=== PATIENT | male | born 1960 | race Two or more races ===

== ENCOUNTER 2020-03-22 17:38 | Inpatient (IN) | payer OTHER, SELFPAY ==
[2020-03-22 18:03] VITALS: BP 198/94; PULSE 96; RESP 24; O2SAT 94
[2020-03-22 18:53] VITALS: BP 204/114; PULSE 99; RESP 24; TEMP 36.8; O2SAT 97; BMI 32.8
--- NOTE | 2020-03-22 19:19 | ED_ITS ---
HPI - Abdominal Pain General Chief Complaint: Abdominal Pain Stated Complaint: ABDOMINAL PAIN Time Seen by Provider: 03/22/20 20:24 Source: patient Mode of arrival: ambulatory Limitations: no limitations History of Present Illness HPI narrative: 59-year-old male with past medical history of hypertension presents with positive COVID-19 contacts, 2 days of abdominal pain, and several hours of nausea and vomiting. He does not report any chest pain or pressure, palpitations, shortness of breath, abdominal distention, dysuria, hematuria fevers, chills, or edema. MD elicited complaint: abdominal pain and flank pain Onset (ago): day(s) (2) Pain Consistency: constant Location: diffuse Severity: severe Pain scale (0-10): 9 Quality: stabbing and aching Radiation: none Migration to: no migration Exacerbating factors: vomiting Relieving factors: nothing Associated symptoms: nausea, vomiting and diarrhea Related Data Home Medications Medication Instructions Recorded Confirmed No Known Home Meds 03/22/20 03/22/20 Allergies Allergy/AdvReac Type Severity Reaction Status Date / Time No Known Allergies Allergy Unverified 11/14/19 18:52 [No Known Allergies*] Review of Systems Review of Systems Constitutional: No Fever, no Chills, no fatigue, no Malaise ENT/Mouth: No sore throat, no runny nose Eyes: No Discharge Cardiovascular: No Chest Pain, No SOB Respiratory: Positive Cough, No Sputum, positive Wheezing, No Smoke Exposure, No Dyspnea Gastrointestinal: Positive Nausea, positive Vomiting, positive Diarrhea, positive abdominal pain Genitourinary: no irregular bleeding, No Dysuria, No Urinary Frequency, No Hematuria, No Urinary Incontinence, No Urgency, positive Flank Pain, Musculoskeletal: positive Myalgia Skin: No rash Neuro: No Headache Yes all other systems are reviewed and are negative Physical Exam Vital Signs: Vital Signs: Last Vital Signs Temp 98.7 F 03/22/20 22:04 Pulse 98 03/23/20 00:37 Resp 20 03/23/20 00:37 BP 156/94 H 03/23/20 00:37 Pulse Ox 95 03/23/20 00:37 Body Mass Index 32.8 Appearance: Alert. Oriented X3. Moderate distress. Afebrile, appears nontoxic Eyes: Pupils equal, round and reactive to light. ENT: Pharynx normal. Neck: Normal inspection. Neck supple. CVS: Tachycardic heart rate and rhythm. Pulses normal. Respiratory: Tachypneic on initial presentation at 24, lung sounds expiratory wheezing noted throughout all lobes diminished at the bases Abdomen: Soft and tender to palpation to the left lower quadrant, positive CVA tenderness bilaterally Skin: Skin warm and dry. Normal skin color. Normal skin turgor. Extremities: No lower extremity edema. Neuro: No motor deficit. No sensory deficit. Course Course Course Narrative: 59-year-old male with past medical history of hypertension presents with positive COVID-19 contact, abdominal pain, and nausea, vomiting an d diarrhea. Test for COVID-19, given patient's positive abdominal exam will order CT scan of abdomen and pelvis, gentle fluid resuscitation, CBC and Chem 7. Patient is COVID positive, will give Bentyl for abdominal pain. CT scan is positive for 8 mm obstructing stone and pyelonephritis. Will order morphine, Flomax, dexamethasone and oxycodone. Urology updated. Discussion with hospitalist regarding admission. Plan is to admit for pain management, obstructing renal stone, pyelonephritis and positive COVID-19. Consultations Consultation #1: [place] Consultation #2: [facility] - Abdominal Pain Differential Diagnosis Differential diagnosis: Likely abdominal pain, aortic dissection, acute appendicitis, calculus of kidney, constipation, diverticulitis, gastritis, pancreatitis and renal colic Differential diagnosis narrative:: Pneumonia, COVID-19 Medical Records Attestation: I reviewed the patient's medical records. Lab Data Attestation: I reviewed the patient's lab results. Result diagrams: 03/22/20 20:21 03/22/20 20:21 Labs: Lab Results 03/22/20 03/22/20 03/22/20 Range/Units 20:21 20:21 20:21 WBC 7.2 (4.8-10.8) X10*3/uL RBC 4.80 (4.60-5.80) X10*6/uL Hgb 17.5 (14.0-18.0) g/dl Hct 50.6 (42-52) % MCV 105.4 H (80-98) fL MCH 36.5 H (27.0-33.0) pg MCHC 34.6 (31.0-36.0) g/dl RDW 12.5 (11.0-16.0) % Plt Count 194 (160-400) X10*3/uL MPV 10.4 (9.4-12.4) fL Immature Gran % (Auto) 0.3 (0.0-0.4) % Neut % (Auto) 77.2 H (45-73) % Lymph % (Auto) 8.6 L (20-40) % [place] % (Auto) 13.1 H (2-11) % Eos % (Auto) 0.4 (0-4) % Baso % (Auto) 0.4 (0-2) % Lymph # (Auto) 0.6 L (1.2-4.9) X10*3/uL [place] # (Auto) 1.0 (0.1-1.2) X10*3/uL Eos # (Auto) 0.0 (0.0-0.4) X10*3/uL Baso # (Auto) 0.0 (0.0-0.2) X10*3/uL Abs Immat Gran (auto) 0.02 (0.00-0.03) X10*3/uL Absolute Neuts (auto) 5.6 (2.0-8.3) X10*3/uL Absolute Nucleated RBC 0.000 (0.0-0.012) X10*3/uL Nucleated RBC % (auto) 0.0 (0.0-0.2) /100WBC Smear Tech's Comments VERIFIED PT 13.0 (10.8-13.0) SEC INR 1.1 (0.9-1.1) APTT 36.5 (24.1-38.0) SEC Sodium (135-145) mmol/L Potassium (3.3-5.1) mmol/l Chloride (96-108) mmol/L Carbon Dioxide (22-29) mmol/L Anion Gap (12-20) BUN (9-16) mg/dL Creatinine (0.5-1.4) mg/dL Estim Creat Clear Calc Estimated GFR Random Glucose (60-115) mg/dL Calcium (8.4-10.2) mg/dL Total Bilirubin (0.0-1.0) mg/dL Direct Bilirubin (0.0-0.5) mg/dL AST (5-37) U/L ALT (0-40) U/L Alkaline Phosphatase (39-117) U/L Troponin I High Sens (<3.5-35.0) ng/L Total Protein (6.5-8.0) g/dL Albumin (3.5-5.0) g/dL Lipase (8-78) U/L Urine Color Urine Appearance Urine pH (5.0-8.0) Ur Specific [place] (1.005-1.025) Urine Protein (NEG-TRACE) MG/DL Urine Glucose (UA) (NEG) MG/DL Urine Ketones (NEG) MG/DL Urine Blood (NEG) Urine Nitrite (NEG) Ur Leukocyte Esterase (NEG) Urine RBC (0) /HPF Urine WBC (0-4) /HPF Ur Squamous Epith Cells /LPF Urine Bacteria /LPF Urine Mucus /LPF Coronavirus (PCR) POSITIVE A (Negative) Influenza Type A (PCR) NEGATIVE (Negative) Influenza Type B (PCR) NEGATIVE (Negative) RSV RNA Qual (PCR) NEGATIVE (Negative) 03/22/20 03/22/20 03/22/20 Range/Units 20:21 20:21 22:16 WBC (4.8-10.8) X10*3/uL RBC (4.60-5.80) X10*6/uL Hgb (14.0-18.0) g/dl Hct (42-52) % MCV (80-98) fL MCH (27.0-33.0) pg MCHC (31.0-36.0) g/dl RDW (11.0-16.0) % Plt Count (160-400) X10*3/uL MPV (9.4-12.4) fL Immature Gran % (Auto) (0.0-0.4) % Neut % (Auto) (45-73) % Lymph % (Auto) (20-40) % [place] % (Auto) (2-11) % Eos % (Auto) (0-4) % Baso % (Auto) (0-2) % Lymph # (Auto) (1.2-4.9) X10*3/uL [place] # (Auto) (0.1-1.2) X10*3/uL Eos # (Auto) (0.0-0.4) X10*3/uL Baso # (Auto) (0.0-0.2) X10*3/uL Abs Immat Gran (auto) (0.00-0.03) X10*3/uL Absolute Neuts (auto) (2.0-8.3) X10*3/uL Absolute Nucleated RBC (0.0-0.012) X10*3/uL Nucleated RBC % (auto) (0.0-0.2) /100WBC Smear Tech's Comments PT (10.8-13.0) SEC INR (0.9-1.1) APTT (24.1-38.0) SEC Sodium 138 (135-145) mmol/L Potassium 3.9 (3.3-5.1) mmol/l Chloride 101 (96-108) mmol/L Carbon Dioxide 25 (22-29) mmol/L Anion Gap 16 (12-20) BUN 6 L (9-16) mg/dL Creatinine 0.93 (0.5-1.4) mg/dL Estim Creat Clear Calc 91.7 Estimated GFR > 60 Random Glucose 191 H (60-115) mg/dL Calcium 8.7 (8.4-10.2) mg/dL Total Bilirubin 1.1 H (0.0-1.0) mg/dL Direct Bilirubin 0.4 (0.0-0.5) mg/dL AST 377 H (5-37) U/L ALT 256 H (0-40) U/L Alkaline Phosphatase 181 H (39-117) U/L Troponin I High Sens 8.2 (<3.5-35.0) ng/L Total Protein 8.9 H (6.5-8.0) g/dL Albumin 3.9 (3.5-5.0) g/dL Lipase 34 (8-78) U/L Urine Color YELLOW Urine Appearance CLEAR Urine pH 7.0 (5.0-8.0) Ur Specific [place] 1.025 (1.005-1.025) Urine Protein NEG (NEG-TRACE) MG/DL Urine Glucose (UA) 100 H (NEG) MG/DL Urine Ketones NEG (NEG) MG/DL Urine Blood 1+ H (NEG) Urine Nitrite NEG (NEG) Ur Leukocyte Esterase NEG (NEG) Urine RBC 5-9 H (0) /HPF Urine WBC 1-4 (0-4) /HPF Ur Squamous Epith Cells 1+ /LPF Urine Bacteria 1+ /LPF Urine Mucus 1+ /LPF Coronavirus (PCR) (Negative) Influenza Type A (PCR) (Negative) Influenza Type B (PCR) (Negative) RSV RNA Qual (PCR) (Negative) Imaging Data CT scan - abdomen: Attestation: I personally reviewed and interpreted this imaging study as follows: Radiologist's impression: EXAMINATION: CT ABDOMEN AND PELVIS WITHOUT CONTRAST CLINICAL INFORMATION: Abdominal pain. COMPARISON: None TECHNIQUE: Multidetector volumetric imaging was performed from the superior aspect of the liver through the pubic symphysis. Sagittal and coronal reformatted images were obtained on the technologist's workstation. This CT examination was performed using dose optimization techniques as appropriate, variously including the following: *Automated exposure control *Adjustment of mA and/or kV according to patient size (this includes techniques or standardized protocols for targeted exams where dose is matched to indication/reason for exam; i.e. extremities or head) *Use of iterative reconstruction technique DLP: 649 mGy-cm FINDINGS: LUNG BASES: There is 6 mm calcified granuloma left lower lobe. The lung bases are clear The heart size is normal.. LIVER, GALLBLADDER, AND BILIARY TREE: The liver is normal in size, shape, and attenuation. No focal hepatic lesion or biliary ductal dilatation is present. The gallbladder is unremarkable with no evidence of radiopaque gallstones, gallbladder wall thickening, or obvious pericholecystic inflammatory changes. PANCREAS: Unremarkable. SPLEEN: Unremarkable. ADRENAL GLANDS: There is a 1.3 cm left adrenal lesion. There are degenerative gland appears unremarkable. KIDNEYS AND URETERS: The left kidneys enlarged in size with diffuse perinephric stranding. There is mild hydroureteronephrosis on an obstructive 8 mm left distal ureteral calculi. The right kidney is normal size. No radiopaque calculi or hydronephrosis seen. BLADDER: The bladder is significantly distended extending almost of umbilicus. No bladder wall thickening seen. GASTROINTESTINAL TRACT: There is scattered stool and gas seen throughout the colon without distention. The small bowel loops are normal caliber. The appendix is normal. ABDOMINAL WALL: No significant hernia is appreciated. LYMPH NODES: Normal. VASCULAR: There is mild ectasia of mid abdominal aorta measuring 2.6 x 2.5 cm and axial image 41/3. In addition there is mild calcification of mid and distal abdominal aorta and common iliac arteries. PELVIC VISCERA: The prostate gland is mildly enlarged with central gland calcifications. OSSEOUS STRUCTURES: There are degenerative disc changes L1-L2 disc level. CT/CT abdomen pelvis wo con IMPRESSION: 8 Left distal ureteral calculi with obstructive hydroureteronephrosis, enlarged left kidney and perinephric stranding. Distended urinary bladder without bladder wall thickening. Mild prostate enlargement. Mild ectatic mid abdominal aorta. Chest x-ray: Attestation: I personally reviewed and interpreted this imaging study as follows: Radiologist's impression: EXAMINATION: CHEST 1 VIEW CLINICAL INFORMATION: Cough. COMPARISON: None. TECHNIQUE: An AP view of the chest is provided. FINDINGS: The cardiac silhouette is not enlarged. The mediastinal and hilar contours are unremarkable. There are neither pleural effusions nor pneumothoraces. There are no consolidations. The osseous structures are unremarkable. XR/XR chest 1V IMPRESSION: No evidence for acute disease. ECG Data Attestation: I personally reviewed and interpreted this ECG as follows: ECG interpretation date: 03/22/20 ECG interpretation time: 20:42 Interpretation: Ventricular rate 110, NE interval 176, QRS 106, QT 332, QTC 449 sinus tachycardia normal EKG, prior EKG unavailable secondary to 130 system error Critical Care Time Critical Care Time Critical Care Time: Yes Total Critical Care Time: 45 Attestation: I have personally provided critical care time exclusive of time spent on separately billable procedures. Time includes review of laboratory data, radiology results, discussion with consultants, and monitoring for potential decompensation. Interventions were performed as documented. Discharge Plan Discharge Clinical Impression: Calculus of kidney, COVID-19, Acute pyelonephritis Patient Disposition: Admitted As Inpatient [facility] Past Medical History Attestation statement: The following information was validated with the patient. Medical History HTN (hypertension) Social History Social History Advance Directives: No Advance Directives Information Provided: No
--- NOTE | 2020-03-22 19:27 | XR_ITS ---
EXAMINATION: CHEST 1 VIEW CLINICAL INFORMATION: Cough. COMPARISON: None. TECHNIQUE: An AP view of the chest is provided. FINDINGS: The cardiac silhouette is not enlarged. The mediastinal and hilar contours are unremarkable. There are neither pleural effusions nor pneumothoraces. There are no consolidations. The osseous structures are unremarkable. XR/XR chest 1V IMPRESSION: No evidence for acute disease.
--- NOTE | 2020-03-22 20:27 | CT_ITS ---
EXAMINATION: CT ABDOMEN AND PELVIS WITHOUT CONTRAST CLINICAL INFORMATION: Abdominal pain. COMPARISON: None TECHNIQUE: Multidetector volumetric imaging was performed from the superior aspect of the liver through the pubic symphysis. Sagittal and coronal reformatted images were obtained on the technologist's workstation. This CT examination was performed using dose optimization techniques as appropriate, variously including the following: *Automated exposure control *Adjustment of mA and/or kV according to patient size (this includes techniques or standardized protocols for targeted exams where dose is matched to indication/reason for exam; i.e. extremities or head) *Use of iterative reconstruction technique DLP: 649 mGy-cm FINDINGS: LUNG BASES: There is 6 mm calcified granuloma left lower lobe. The lung bases are clear The heart size is normal.. LIVER, GALLBLADDER, AND BILIARY TREE: The liver is normal in size, shape, and attenuation. No focal hepatic lesion or biliary ductal dilatation is present. The gallbladder is unremarkable with no evidence of radiopaque gallstones, gallbladder wall thickening, or obvious pericholecystic inflammatory changes. PANCREAS: Unremarkable. SPLEEN: Unremarkable. ADRENAL GLANDS: There is a 1.3 cm left adrenal lesion. There are degenerative gland appears unremarkable. KIDNEYS AND URETERS: The left kidneys enlarged in size with diffuse perinephric stranding. There is mild hydroureteronephrosis on an obstructive 8 mm left distal ureteral calculi. The right kidney is normal size. No radiopaque calculi or hydronephrosis seen. BLADDER: The bladder is significantly distended extending almost of umbilicus. No bladder wall thickening seen. GASTROINTESTINAL TRACT: There is scattered stool and gas seen throughout the colon without distention. The small bowel loops are normal caliber. The appendix is normal. ABDOMINAL WALL: No significant hernia is appreciated. LYMPH NODES: Normal. VASCULAR: There is mild ectasia of mid abdominal aorta measuring 2.6 x 2.5 cm and axial image 41/3. In addition there is mild calcification of mid and distal abdominal aorta and common iliac arteries. PELVIC VISCERA: The prostate gland is mildly enlarged with central gland calcifications. OSSEOUS STRUCTURES: There are degenerative disc changes L1-L2 disc level. CT/CT abdomen pelvis wo con IMPRESSION: 8 Left distal ureteral calculi with obstructive hydroureteronephrosis, enlarged left kidney and perinephric stranding. Distended urinary bladder without bladder wall thickening. Mild prostate enlargement. Mild ectatic mid abdominal aorta.
[2020-03-22 20:29] LABS: Basophils Percent Auto 0.4 % (0-2); Eosinophils Percent Auto 0.4 % (0-4); Hematocrit 50.6 % (42-52); Hemoglobin 17.5 g/dl (14.0-18.0); Imm Gran Abs Auto 0.02 X10*3/uL (0.00-0.03); Imm Gran Pct Auto 0.3 % (0.0-0.4); Lymphocytes Absolute Auto 0.6 X10*3/uL (1.2-4.9); Lymphocytes Percent Auto 8.6 % (20-40); MANUAL DIFF FLAG SCAN; Mean Corpuscular HGB Conc 34.6 g/dl (31.0-36.0); Mean Corpuscular Hemoglobin 36.5 pg (27.0-33.0); Mean Corpuscular Volume 105.4 fL (80-98); Mean Platelet Volume 10.4 fL (9.4-12.4); Monocytes Percent Auto 13.1 % (2-11); Neutrophils Absolute Auto 5.6 X10*3/uL (2.0-8.3); Neutrophils Percent Auto 77.2 % (45-73); Platelet Count 194 X10*3/uL (160-400); Red Cell Distribution Width 12.5 % (11.0-16.0); SCAN SMEAR FLAG 1; White Blood Count 7.2 X10*3/uL (4.8-10.8)
[2020-03-22] MEDS: Dicyclomine HCl 10 MG CAPSULE 20 MG PO (20:30)
[2020-03-22 20:37] LABS: INTERNATIONAL NORM RATIO 1.1 (0.9-1.1)
[2020-03-22 20:39] LABS: Partial Thromboplastin Time 36.5 SEC (24.1-38.0)
--- NOTE | 2020-03-22 20:42 | ECG_ITS ---
Test Reason : ABDOMINAL PAIN Blood Pressure : / mmHG Vent. Rate : 110 BPM Atrial Rate : 110 BPM P-R Int : 176 ms QRS Dur : 106 ms QT Int : 332 ms P-R-T Axes : 045 013 052 degrees QTc Int : 449 ms Sinus tachycardia Otherwise normal ECG When compared to the previous EKG of No significant changes seen Referred By: Aure Mora Electronically Signed By:Carlton Pickett
[2020-03-22 20:53] LABS: SLIDE REVIEW VERIFIED
[2020-03-22 21:08] LABS: Alanine Aminotransferase 256 U/L (0-40); Albumin Level 3.9 g/dL (3.5-5.0); Alkaline Phosphatase 181 U/L (39-117); Anion Gap 16 (12-20); Aspartate Amino Transferase 377 U/L (5-37); Bilirubin Direct 0.4 mg/dL (0.0-0.5); Bilirubin Total 1.1 mg/dL (0.0-1.0); Blood Urea Nitrogen 6 mg/dL (9-16); Calcium 8.7 mg/dL (8.4-10.2); Carbon Dioxide 25 mmol/L (22-29); Chloride 101 mmol/L (96-108); Creatinine Clr Calc Pharmacy 91.7; Estimated Glomerular Filt Rate > 60; Glucose Random 191 mg/dL (60-115); Lipase 34 U/L (8-78); Potassium 3.9 mmol/l (3.3-5.1); Sodium 138 mmol/L (135-145); Total Protein 8.9 g/dL (6.5-8.0); Troponin-I High Sensitivity 8.2 ng/L (<3.5-35.0)
[2020-03-22 21:09] LABS: Influenza A PCR NEGATIVE (Negative); Influenza B PCR NEGATIVE (Negative); Resp Syncy Virus RNA Qual PCR NEGATIVE (Negative); SARS COV2 PCR INHOUSE POSITIVE (Negative)
[2020-03-22 22:04] VITALS: BP 184/107; PULSE 114; RESP 20; TEMP 37.1; O2SAT 97
[2020-03-22 22:05] VITALS: RESP 20
[2020-03-22] MEDS: Morphine Sulfate 4 MG/ML CARTRIDGE IVPUSH (22:05)
[2020-03-22] MEDS: dexAMETHasone sod phosphate 4 MG/ML VIAL 6 MG IVPUSH (22:06)
[2020-03-22] MEDS: Tamsulosin HCL 0.4 MG CAPSULE PO (22:06)
[2020-03-22] MEDS: Ketorolac Tromethamine 30 MG/ML VIAL IVPUSH (22:06)
--- NOTE | 2020-03-22 22:19 | PC.NURSE ---
patient reports pain now 3-06/06
--- NOTE | 2020-03-22 23:16 | PM.IMHP ---
History of Present Illness Date of Service: 03/22/20 Chief Complaint: Abdominal pain 59 yo M who denies any pmhx presents to the hospital with complains of abdominal pain that started this afternoon. Pain is located in the left upper quadrant, 10/10, non-radiating, sharp, crampy, associated with nausea and vomiting, pain medicine given in the ED helped relieve the pain, no exacerbating factors. reports hx of kidney stones. He is also complaining of abdominal pain. Pt reports that he had contact with his brother in law who was COVID positive and after getting the abdominal pain, he was concerned he may have contracted covid. He denies any cough, no sob, no fever no chills. On arrival to the ED patient has temp of 98.2?, heart rate of 99, respiratory rate of 24, blood pressure of 204/114, satting 97% on room air Labs are significant for WBC count of 7.2, hemoglobin of 17.5, sodium of 138, potassium of 3.9, total bili of 1.1, AST of 377, ALT of 256, alk-phos of 181, COVID-19 positive, abdominal CT showedLeft distal ureteral calculi with obstructive hydroureteronephrosis, enlarged left kidney and perinephric stranding UA pending Urology consulted: Recommended Toradol, prednisone, Flomax and will be seeing the patient in the morning Past medical history: Denies having any past medical history, Has not seen a PCP in 4 years Surgical history: Right leg surgery Family history: Significant for hypertension Social history: Comes from home, denies tobacco use, reports that drinks sometimes benign regularly, uses no illicit drugs Review of Systems Review of Systems: Yes all other systems are reviewed and are negative [facility] Medical History HTN (hypertension) Social History Advance Directives: No Advance Directives Information Provided: No Meds Allergies Allergy/AdvReac Type Severity Reaction Status Date / Time No Known Allergies Allergy Unverified 11/14/19 18:52 [No Known Allergies*] Home Medications Medication Instructions Recorded Confirmed Type No Known Home Meds 03/22/20 03/22/20 History Physical Exam Vital Signs and Narrative: Vital Signs: Last Vital Signs Temp 98.7 F 03/22/20 22:04 Pulse 114 H 03/22/20 22:04 Resp 20 03/22/20 22:05 BP 184/107 H 03/22/20 22:04 Pulse Ox 97 03/22/20 22:04 Body Mass Index 32.8 Const: General: cooperative and no acute distress Orientation/consciousness: patient oriented x3 Eyes: General: appearance normal, both eyes and all related structures Resp: Effort & Inspection: normal respiratory effort and able to speak in complete sentences Cardio: Rate: regular rate Rhythm: regular rhythm GI: Other: No rebound, no guarding Palpation (GI): Soft to palpation Auscultation: normal bowel sounds : General: Yes no CVA tenderness Back/Spine/Pelvis: Back: no CVA tenderness Skin: General skin exam: no rashes or lesions noted Neuro: General: patient oriented x3 Cognition (Neuro): normal cognition Extrem: General: Yes normal to inspection and Yes no pedal edema Results Labs CBC and Chem 7: 03/22/20 20:21 03/22/20 20:21 Labs: Laboratory Results - last 24 hr 03/22/20 03/22/20 03/22/20 20:21 20:21 20:21 MCV 105.4 H MCH 36.5 H MCHC 34.6 RDW 12.5 Plt Count 194 MPV 10.4 Immature Gran % (Auto) 0.3 Neut % (Auto) 77.2 H Lymph % (Auto) 8.6 L [place] % (Auto) 13.1 H Eos % (Auto) 0.4 Baso % (Auto) 0.4 Lymph # (Auto) 0.6 L [place] # (Auto) 1.0 Eos # (Auto) 0.0 Baso # (Auto) 0.0 Abs Immat Gran (auto) 0.02 Absolute Neuts (auto) 5.6 Absolute Nucleated RBC 0.000 Nucleated RBC % (auto) 0.0 Smear Tech's Comments VERIFIED PT 13.0 INR 1.1 APTT 36.5 Anion Gap Estim Creat Clear Calc Estimated GFR Random Glucose Calcium Total Bilirubin Direct Bilirubin AST ALT Alkaline Phosphatase Troponin I High Sens Total Protein Albumin Lipase Coronavirus (PCR) POSITIVE A Influenza Type A (PCR) NEGATIVE Influenza Type B (PCR) NEGATIVE RSV RNA Qual (PCR) NEGATIVE 03/22/20 03/22/20 20:21 20:21 MCV MCH MCHC RDW Plt Count MPV Immature Gran % (Auto) Neut % (Auto) Lymph % (Auto) [place] % (Auto) Eos % (Auto) Baso % (Auto) Lymph # (Auto) [place] # (Auto) Eos # (Auto) Baso # (Auto) Abs Immat Gran (auto) Absolute Neuts (auto) Absolute Nucleated RBC Nucleated RBC % (auto) Smear Tech's Comments PT INR APTT Anion Gap 16 Estim Creat Clear Calc 91.7 Estimated GFR > 60 Random Glucose 191 H Calcium 8.7 Total Bilirubin 1.1 H Direct Bilirubin 0.4 AST 377 H ALT 256 H Alkaline Phosphatase 181 H Troponin I High Sens 8.2 Total Protein 8.9 H Albumin 3.9 Lipase 34 Coronavirus (PCR) Influenza Type A (PCR) Influenza Type B (PCR) RSV RNA Qual (PCR) Imaging Radiologist's Impressions: Impressions Chest X-Ray 03/22/20 19:27 IMPRESSION: No evidence for acute disease. Abdomen/Pelvis CT 03/22/20 20:27 IMPRESSION: 8 Left distal ureteral calculi with obstructive hydroureteronephrosis, enlarged left kidney and perinephric stranding. Distended urinary bladder without bladder wall thickening. Mild prostate enlargement. Mild ectatic mid abdominal aorta. Assessment and Plan (1) Hydronephrosis with obstructing calculus: Status: Acute (2) Pyelonephritis: Status: Acute (3) Hypertensive crisis: Status: Acute (4) COVID-19: Status: Acute This is a 59-year-old male with no significant past medical history presents to the hospital complaining of abdominal pain found to have an obstructing calculus # left obstructing calculus with hydroureteronephrosis - there is also left kidney stranding -will start him on IV antibiotics - IV fluids - consult Urology - UA pending - follow Urine cultures # Pyelonephritis - has nephritic stranding on CT of abdomen of left side - will start IV antibiotics - Follow cultures #COVID 19 positive - no respiratory symptoms at this time - will follow resp symptoms # Hypertensive crisis - BP 204/114 on arrival - denies any symptoms - Denies any hx of hypertension Plan: - Improving in ED - will monitor and if consistently high, will need to start him on antihypertensive prior to discharge DVT ppx: Heparin Subq
[2020-03-22 23:57] LABS: Glucose Urine UA 100 MG/DL (NEG); Leukocyte Esterase Urine NEG (NEG); Nitrite Urine NEG (NEG); Specific Gravity - Urine 1.025 (1.005-1.025); Urine Blood 1+ (NEG); Urine Ketones NEG (NEG); Urine Protein NEG (NEG-TRACE)
[2020-03-22 23:59] LABS: Appearance Urine CLEAR; Color Urine YELLOW
[2020-03-23] VITALS (7 sets, daily range): BP systolic 137–162; BP diastolic 91–97; PULSE 75–98; RESP 12–20; TEMP 36.7–37.1; O2SAT 95–97
--- NOTE | 2020-03-23 | ECG_ITS ---
Test Reason : EDMD Blood Pressure : / mmHG Vent. Rate : 091 BPM Atrial Rate : 091 BPM P-R Int : 166 ms QRS Dur : 096 ms QT Int : 376 ms P-R-T Axes : 048 005 040 degrees QTc Int : 462 ms Normal sinus rhythm Otherwise normal ECG When compared to the previous EKG of No significant changes seen Referred By: Aure Mora Electronically Signed By:Carlton Pickett
[2020-03-23 00:16] LABS: Bacteria Urine 1+ /LPF; Mucus Urine 1+ /LPF; Squamous Epithelial Cell Urine 1+ /LPF
[2020-03-23] MEDS: cefTRIAXone sodium 1 GM in 0.9 % Sodium Chloride 50 ML IV (00:39)
[2020-03-23] MEDS: Heparin Sodium,Porcine 5,000 UNIT/ML VIAL 5000 UNIT SUBCUT ×3 (00:40→17:38)
[2020-03-23] MEDS: Lactated Ringers 1,000 ML 100 ML IVCONT ×3 (00:47→17:39)
[2020-03-23] MEDS: 0.9 % Sodium Chloride Flush 3 ML SYRINGE IVFLUSH ×3 (00:48→17:39)
[2020-03-23 06:21] LABS: MANUAL DIFF FLAG NO
[2020-03-23 06:24] LABS: Basophils Percent Auto 0.2 % (0-2); Hematocrit 48.5 % (42-52); Hemoglobin 16.9 g/dl (14.0-18.0); Imm Gran Abs Auto 0.01 X10*3/uL (0.00-0.03); Imm Gran Pct Auto 0.2 % (0.0-0.4); Lymphocytes Absolute Auto 0.9 X10*3/uL (1.2-4.9); Lymphocytes Percent Auto 16.8 % (20-40); Mean Corpuscular HGB Conc 34.8 g/dl (31.0-36.0); Mean Corpuscular Hemoglobin 36.2 pg (27.0-33.0); Mean Corpuscular Volume 103.9 fL (80-98); Mean Platelet Volume 10.7 fL (9.4-12.4); Monocytes Absolute Auto 0.4 X10*3/uL (0.1-1.2); Monocytes Percent Auto 8.3 % (2-11); Neutrophils Absolute Auto 3.9 X10*3/uL (2.0-8.3); Neutrophils Percent Auto 74.5 % (45-73); Platelet Count 200 X10*3/uL (160-400); Red Blood Count 4.67 X10*6/uL (4.60-5.80); Red Cell Distribution Width 12.3 % (11.0-16.0); White Blood Count 5.2 X10*3/uL (4.8-10.8)
[2020-03-23 06:55] LABS: Alanine Aminotransferase 200 U/L (0-40); Albumin Level 3.4 g/dL (3.5-5.0); Alkaline Phosphatase 152 U/L (39-117); Anion Gap 16 (12-20); Aspartate Amino Transferase 238 U/L (5-37); Blood Urea Nitrogen 9 mg/dL (9-16); Calcium 8.6 mg/dL (8.4-10.2); Carbon Dioxide 22 mmol/L (22-29); Chloride 102 mmol/L (96-108); Estimated Glomerular Filt Rate > 60; Glucose Random 219 mg/dL (60-115); Sodium 136 mmol/L (135-145); Total Protein 7.8 g/dL (6.5-8.0)
--- NOTE | 2020-03-23 14:53 | PC.NURSE ---
pt ambulatory to a chair in hallway. awaits room upstairs. no distress at this time. tolerant of move to chair. skin pwd
--- NOTE | 2020-03-23 15:07 | HO.PM.IMPN ---
Subjective Subjective Date of Service: 03/23/20 Interval History: The patient was seen and evaluated this morning Laying in bed, pain under better control at this point, no fever but reporting chills Denies any fever or chest pain No reported other overnight events. Systemic review: No fever, chills or weakness No chest pain, palpitation No shortness of breath or coughing No abdominal pain, nausea or vomiting Hematuria, pain No any rash or wounds Physical Exam Vital Signs: Vital Signs: Last Vital Signs Temp 98.6 F 03/23/20 14:52 Pulse 88 03/23/20 14:52 Resp 18 03/23/20 14:52 BP 145/97 H 03/23/20 14:52 Pulse Ox 96 03/23/20 14:52 Body Mass Index 32.8 Const: Other: Constitutional : Alert, oriented, not in distress Neck : Normal inspection, Supple Cardiovascular : RRR, S1 S2, no lower extremity edema Respiratory : Good bilateral air entry, no crackles, wheezes or rhonchi Gastrointestinal: soft, lax, Normal bowel sounds, Non tender Skin : Warm/Dry, No rash Neurological : Alert & oriented x3, No focal deficit Objective Data Current Medications Generic Name Dose Route Start Last Admin Trade Name Freq PRN Reason Stop Dose Admin Acetaminophen 650 mg 03/22/20 23:25 Acetaminophen 325 Mg Tablet PO Q6H PRN Pain, Mild (Pain Scale 1-3) Docusate Sodium 100 mg 03/22/20 23:25 Docusate Sodium 100 Mg Capsule PO DAILY PRN Constipation Heparin Sodium (Porcine) 5,000 unit 03/22/20 23:30 03/23/20 07:22 Heparin Sodium,Porcine 5,000 Unit/Ml Vial SUBCUT 5,000 unit Q8H VERÓNICA Administration Ceftriaxone Sodium 1 gm/ 50 mls @ 100 mls/hr 03/22/20 23:30 03/23/20 01:09 Sodium Chloride IV Infused Q24H VERÓNICA Infusion Lactated Ringer's 1,000 mls @ 100 mls/hr 03/22/20 23:45 03/23/20 07:23 Lr IVCONT 100 mls/hr .Q10H VERÓNICA Administration Ondansetron HCl 4 mg 03/22/20 23:25 Ondansetron Hcl 4 Mg/2 Ml Vial IVPUSH Q8H PRN Nausea and Vomiting Sodium Chloride 3 ml 03/23/20 00:00 03/23/20 07:48 0.9 % Sodium Chloride Flush 3 Ml Syringe IVFLUSH 3 ml QSHIFT VERÓNICA Administration Labs CBC & Chem 7: 03/23/20 06:09 03/23/20 06:09 Assessment and Plan (1) Hydronephrosis with obstructing calculus: Status: Acute (2) Pyelonephritis: Status: Acute (3) Hypertensive crisis: Status: Acute (4) COVID-19: Status: Acute Assessment and Plan: This is a 59-year-old male with no significant past medical history presents to the hospital complaining of abdominal pain found to have an obstructing calculus left obstructing calculus with hydroureteronephrosis CT scan showing left ureteric stone Pending urology consult Keep on IV fluids Pain medication as needed Pyelonephritis nephritic stranding on CT of abdomen of left side Continue antibiotics Pending cultures COVID 19 positive no respiratory symptoms at this time will follow resp symptoms Hypertensive urgency BP 204/114 on arrival Likely secondary to pain and stress Better controlled today with no active medications continue to monitor and will add medications if needed DVT ppx: Heparin Subq
--- NOTE | 2020-03-23 21:36 | MHC.CM.PN ---
Addendum entered by Kassidy Waddell 03/23/20 23:25: Copies of HCP given to pt. Original Note: Met with pt, pending admission to floor. No bed yet. To remain ED overflow. Spoke with pt via an pay station attendant. Pt lives with Girlfriend, Is independent at home and has no services. Covid positive. Admitted with pyelo and obstructing reanl calculi. Does not havea PCP or HCP. Willing to have CM complete a HCP. Daughter, Harley Tan to be HCP([phone]). Completed, signed and placed in medical record by registration. Expect home without services. Family to provide transportation. CM to follow for D/C needs.
[2020-03-24] VITALS (12 sets, daily range): BP systolic 119–158; BP diastolic 70–102; PULSE 77–112; RESP 16–20; TEMP 36.4–37.3; O2SAT 93–97; BMI 32.8
[2020-03-24] MEDS: 0.9 % Sodium Chloride Flush 3 ML SYRINGE IVFLUSH
[2020-03-24] MEDS: cefTRIAXone sodium 1 GM in 0.9 % Sodium Chloride 50 ML IV ×2 (01:30→22:51)
[2020-03-24] MEDS: Heparin Sodium,Porcine 5,000 UNIT/ML VIAL 5000 UNIT SUBCUT ×3 (01:31→22:51)
[2020-03-24] MEDS: Lactated Ringers 1,000 ML 100 ML IVCONT ×2 (06:33→17:31)
--- NOTE | 2020-03-24 06:34 | PC.NURSE ---
LR CONTINUES TO RUN ON PUMP AT 100ML/HR, SITE INTACT. PT AWAITING FOR UROLOGY IN AM. PT IN NAD. PT ON MONITOR, VS OBTAINED.
[2020-03-24 08:54] LABS: Hematocrit 48.8 % (42-52); Hemoglobin 16.6 g/dl (14.0-18.0); Mean Corpuscular Hemoglobin 36.2 pg (27.0-33.0); Mean Corpuscular Volume 106.6 fL (80-98); Mean Platelet Volume 10.5 fL (9.4-12.4); Platelet Count 204 X10*3/uL (160-400); Red Blood Count 4.58 X10*6/uL (4.60-5.80); Red Cell Distribution Width 12.8 % (11.0-16.0); White Blood Count 6.8 X10*3/uL (4.8-10.8)
[2020-03-24 09:32] LABS: Anion Gap 14 (12-20); Blood Urea Nitrogen 15 mg/dL (9-16); Calcium 8.5 mg/dL (8.4-10.2); Carbon Dioxide 27 mmol/L (22-29); Chloride 104 mmol/L (96-108); Creatinine Clr Calc Pharmacy 78.2; Estimated Glomerular Filt Rate > 60; Glucose Random 100 mg/dL (60-115); Potassium 3.5 mmol/l (3.3-5.1); Sodium 141 mmol/L (135-145)
--- NOTE | 2020-03-24 11:19 | P.CONAN_ITS ---
HPI - Anesthesia Eval Consult details Narrative: 59 y/o male with acute obstructing stone with pyelonephritis. COVID positive - no resp symptoms PMFSH Past Medical History Medical History HTN (hypertension) Social History Social History Household Members: Spouse Housing: House Do you presently have visiting nurse or other home services: No Smoking Status: Unknown if ever smoked Use of substances other than those prescribed or required for medical reasons: No Currently Displaying Signs/Symptoms of Drug Intoxication Withdrawal: No Advance Directives: No Advance Directives Information Provided: No Do you have thoughts of harming others: None Do you have a plan to hurt others: No Plan Recently lost weight without trying: No service: No Current occupational status: unemployed Meds Allergies Allergy/AdvReac Type Severity Reaction Status Date / Time No Known Allergies Allergy Unverified 11/14/19 18:52 [No Known Allergies*] Home Medications Medication Instructions Recorded Confirmed Type No Known Home Meds 03/22/20 03/22/20 History Exam Exam Date and Time: March 24, 2020 1119 Height,Weight and Vital Signs: Height 5 ft 7 in Weight 95.254 kg Last Vital Signs Temp 97.6 F 03/24/20 08:42 Pulse 79 03/24/20 08:42 Resp 18 03/24/20 06:25 BP 142/90 H 03/24/20 06:25 Pulse Ox 97 03/24/20 08:42 Pertinent Lab Results Pertinent Lab Results: Laboratory Tests 03/22/20 03/22/20 03/22/20 20:21 20:21 20:21 WBC 7.2 RBC 4.80 Hgb 17.5 Hct 50.6 MCV 105.4 H MCH 36.5 H MCHC 34.6 RDW 12.5 Plt Count 194 MPV 10.4 Immature Gran % (Auto) 0.3 Neut % (Auto) 77.2 H Lymph % (Auto) 8.6 L [place] % (Auto) 13.1 H Eos % (Auto) 0.4 Baso % (Auto) 0.4 Lymph # (Auto) 0.6 L [place] # (Auto) 1.0 Eos # (Auto) 0.0 Baso # (Auto) 0.0 Abs Immat Gran (auto) 0.02 Absolute Neuts (auto) 5.6 Absolute Nucleated RBC 0.000 Nucleated RBC % (auto) 0.0 Smear Tech's Comments VERIFIED PT 13.0 INR 1.1 APTT 36.5 Sodium Potassium Chloride Carbon Dioxide Anion Gap BUN Creatinine Estim Creat Clear Calc Estimated GFR Random Glucose Calcium Total Bilirubin Direct Bilirubin AST ALT Alkaline Phosphatase Troponin I High Sens Total Protein Albumin Lipase Urine Color Urine Appearance Urine pH Ur Specific [place] Urine Protein Urine Glucose (UA) Urine Ketones Urine Blood Urine Nitrite Ur Leukocyte Esterase Urine RBC Urine WBC Ur Squamous Epith Cells Urine Bacteria Urine Mucus Coronavirus (PCR) POSITIVE A Influenza Type A (PCR) NEGATIVE Influenza Type B (PCR) NEGATIVE RSV RNA Qual (PCR) NEGATIVE 03/22/20 03/22/20 03/22/20 20:21 20:21 22:16 WBC RBC Hgb Hct MCV MCH MCHC RDW Plt Count MPV Immature Gran % (Auto) Neut % (Auto) Lymph % (Auto) [place] % (Auto) Eos % (Auto) Baso % (Auto) Lymph # (Auto) [place] # (Auto) Eos # (Auto) Baso # (Auto) Abs Immat Gran (auto) Absolute Neuts (auto) Absolute Nucleated RBC Nucleated RBC % (auto) Smear Tech's Comments PT INR APTT Sodium 138 Potassium 3.9 Chloride 101 Carbon Dioxide 25 Anion Gap 16 BUN 6 L Creatinine 0.93 Estim Creat Clear Calc 91.7 Estimated GFR > 60 Random Glucose 191 H Calcium 8.7 Total Bilirubin 1.1 H Direct Bilirubin 0.4 AST 377 H ALT 256 H Alkaline Phosphatase 181 H Troponin I High Sens 8.2 Total Protein 8.9 H Albumin 3.9 Lipase 34 Urine Color YELLOW Urine Appearance CLEAR Urine pH 7.0 Ur Specific [place] 1.025 Urine Protein NEG Urine Glucose (UA) 100 H Urine Ketones NEG Urine Blood 1+ H Urine Nitrite NEG Ur Leukocyte Esterase NEG Urine RBC 5-9 H Urine WBC 1-4 Ur Squamous Epith Cells 1+ Urine Bacteria 1+ Urine Mucus 1+ Coronavirus (PCR) Influenza Type A (PCR) Influenza Type B (PCR) RSV RNA Qual (PCR) 03/23/20 03/23/20 03/24/20 06:09 06:09 08:37 WBC 5.2 6.8 RBC 4.67 4.58 L Hgb 16.9 16.6 Hct 48.5 48.8 MCV 103.9 H 106.6 H MCH 36.2 H 36.2 H MCHC 34.8 34.0 RDW 12.3 12.8 Plt Count 200 204 MPV 10.7 10.5 Immature Gran % (Auto) 0.2 Neut % (Auto) 74.5 H Lymph % (Auto) 16.8 L [place] % (Auto) 8.3 Eos % (Auto) 0.0 Baso % (Auto) 0.2 Lymph # (Auto) 0.9 L [place] # (Auto) 0.4 Eos # (Auto) 0.0 Baso # (Auto) 0.0 Abs Immat Gran (auto) 0.01 Absolute Neuts (auto) 3.9 Absolute Nucleated RBC 0.000 0.000 Nucleated RBC % (auto) 0.0 0.0 Smear Tech's Comments PT INR APTT Sodium 136 Potassium 4.0 Chloride 102 Carbon Dioxide 22 Anion Gap 16 BUN 9 Creatinine 1.08 Estim Creat Clear Calc 79.0 Estimated GFR > 60 Random Glucose 219 H Calcium 8.6 Total Bilirubin 1.0 Direct Bilirubin AST 238 H ALT 200 H Alkaline Phosphatase 152 H Troponin I High Sens Total Protein 7.8 Albumin 3.4 L Lipase Urine Color Urine Appearance Urine pH Ur Specific [place] Urine Protein Urine Glucose (UA) Urine Ketones Urine Blood Urine Nitrite Ur Leukocyte Esterase Urine RBC Urine WBC Ur Squamous Epith Cells Urine Bacteria Urine Mucus Coronavirus (PCR) Influenza Type A (PCR) Influenza Type B (PCR) RSV RNA Qual (PCR) 03/24/20 08:37 WBC RBC Hgb Hct MCV MCH MCHC RDW Plt Count MPV Immature Gran % (Auto) Neut % (Auto) Lymph % (Auto) [place] % (Auto) Eos % (Auto) Baso % (Auto) Lymph # (Auto) [place] # (Auto) Eos # (Auto) Baso # (Auto) Abs Immat Gran (auto) Absolute Neuts (auto) Absolute Nucleated RBC Nucleated RBC % (auto) Smear Tech's Comments PT INR APTT Sodium 141 Potassium 3.5 Chloride 104 Carbon Dioxide 27 Anion Gap 14 BUN 15 D Creatinine 1.09 Estim Creat Clear Calc 78.2 Estimated GFR > 60 Random Glucose 100 D Calcium 8.5 Total Bilirubin Direct Bilirubin AST ALT Alkaline Phosphatase Troponin I High Sens Total Protein Albumin Lipase Urine Color Urine Appearance Urine pH Ur Specific [place] Urine Protein Urine Glucose (UA) Urine Ketones Urine Blood Urine Nitrite Ur Leukocyte Esterase Urine RBC Urine WBC Ur Squamous Epith Cells Urine Bacteria Urine Mucus Coronavirus (PCR) Influenza Type A (PCR) Influenza Type B (PCR) RSV RNA Qual (PCR) Airway Mallampati Class: II TM Dist: >3cm Neck ROM: Full
--- NOTE | 2020-03-24 12:02 | P.PNIM_ITS ---
Subjective Subjective Date of Service: 03/24/20 Interval History: The patient was seen and evaluated this morning Laying in bed, pain under good control at this point Denies any fever or chest pain No reported other overnight events. Systemic review: No fever, chills or weakness No chest pain, palpitation No shortness of breath or coughing No abdominal pain, nausea or vomiting Hematuria, pain No any rash or wounds Physical Exam Vital Signs: Vital Signs: Last Vital Signs Temp 97.6 F 03/24/20 08:42 Pulse 79 03/24/20 08:42 Resp 18 03/24/20 06:25 BP 142/90 H 03/24/20 06:25 Pulse Ox 97 03/24/20 08:42 Body Mass Index 32.8 Const: Other: Constitutional : Alert, oriented, not in distress Neck : Normal inspection, Supple Cardiovascular : RRR, S1 S2, no lower extremity edema Respiratory : Good bilateral air entry, no crackles, wheezes or rhonchi Gastrointestinal: soft, lax, Normal bowel sounds, Non tender Skin : Warm/Dry, No rash Neurological : Alert & oriented x3, No focal deficit Objective Data Current Medications Generic Name Dose Route Start Last Admin Trade Name Freq PRN Reason Stop Dose Admin Acetaminophen 650 mg 03/22/20 23:25 Acetaminophen 325 Mg Tablet PO Q6H PRN Pain, Mild (Pain Scale 1-3) Docusate Sodium 100 mg 03/22/20 23:25 Docusate Sodium 100 Mg Capsule PO DAILY PRN Constipation Heparin Sodium (Porcine) 5,000 unit 03/22/20 23:30 03/24/20 08:36 Heparin Sodium,Porcine 5,000 Unit/Ml Vial SUBCUT Not Given Q8H VERÓNICA Ceftriaxone Sodium 1 gm/ 50 mls @ 100 mls/hr 03/22/20 23:30 03/24/20 01:47 Sodium Chloride IV Infused Q24H VERÓNICA Infusion Lactated Ringer's 1,000 mls @ 100 mls/hr 03/22/20 23:45 03/24/20 06:33 Lr IVCONT 100 mls/hr .Q10H VERÓNICA Administration Ondansetron HCl 4 mg 03/22/20 23:25 Ondansetron Hcl 4 Mg/2 Ml Vial IVPUSH Q8H PRN Nausea and Vomiting Sodium Chloride 3 ml 03/23/20 00:00 03/24/20 08:36 0.9 % Sodium Chloride Flush 3 Ml Syringe IVFLUSH Not Given QSHIFT VERÓNICA Tamsulosin HCl 0.4 mg 03/24/20 10:40 Tamsulosin Hcl 0.4 Mg Capsule PO DAILY REPLACED BY [facility] Labs CBC & Chem 7: 03/24/20 08:37 03/24/20 08:37 Assessment and Plan (1) Hydronephrosis with obstructing calculus: Status: Acute (2) Pyelonephritis: Status: Acute (3) Hypertensive crisis: Status: Acute (4) COVID-19: Status: Acute Assessment and Plan: This is a 59-year-old male with no significant past medical history presents to the hospital complaining of abdominal pain found to have an obstructing calculus left obstructing calculus with hydroureteronephrosis CT scan showing left ureteric stone Urology procedure today Keep on IV fluids Pain medication as needed Pyelonephritis nephritic stranding on CT of abdomen of left side Continue Ceftriaxone D3 Pending cultures Urine retention Noted on CT scan To check Bladder scan Melgoza ? Start Tamsulosin COVID 19 positive no respiratory symptoms at this time will follow resp symptoms Hypertensive urgency BP 204/114 on arrival Likely secondary to pain and stress Better controlled today with no active medications continue to monitor and will add medications if needed DVT ppx: Heparin Subq
--- NOTE | 2020-03-24 12:07 | HO.ANESPROP2 ---
[facility] Past Medical History Medical History HTN (hypertension) Social History Social History Household Members: Spouse Housing: House Do you presently have visiting nurse or other home services: No Smoking Status: Unknown if ever smoked Use of substances other than those prescribed or required for medical reasons: No Currently Displaying Signs/Symptoms of Drug Intoxication Withdrawal: No Advance Directives: No Advance Directives Information Provided: No Do you have thoughts of harming others: None Do you have a plan to hurt others: No Plan Recently lost weight without trying: No service: No Current occupational status: unemployed Meds Allergies Allergy/AdvReac Type Severity Reaction Status Date / Time No Known Allergies Allergy Unverified 11/14/19 18:52 [No Known Allergies*] Home Medications Medication Instructions Recorded Confirmed Type No Known Home Meds 03/22/20 03/22/20 History Exam Exam Date and Time: March 24, 2020 1207 Height,Weight and Vital Signs: Height 5 ft 7 in Weight 95.254 kg Last Vital Signs Temp 97.6 F 03/24/20 08:42 Pulse 79 03/24/20 08:42 Resp 18 03/24/20 06:25 BP 142/90 H 03/24/20 06:25 Pulse Ox 97 03/24/20 08:42 Pertinent Lab Results Pertinent Lab Results: Laboratory Tests 03/22/20 03/22/20 03/22/20 20:21 20:21 20:21 WBC 7.2 RBC 4.80 Hgb 17.5 Hct 50.6 MCV 105.4 H MCH 36.5 H MCHC 34.6 RDW 12.5 Plt Count 194 MPV 10.4 Immature Gran % (Auto) 0.3 Neut % (Auto) 77.2 H Lymph % (Auto) 8.6 L [place] % (Auto) 13.1 H Eos % (Auto) 0.4 Baso % (Auto) 0.4 Lymph # (Auto) 0.6 L [place] # (Auto) 1.0 Eos # (Auto) 0.0 Baso # (Auto) 0.0 Abs Immat Gran (auto) 0.02 Absolute Neuts (auto) 5.6 Absolute Nucleated RBC 0.000 Nucleated RBC % (auto) 0.0 Smear Tech's Comments VERIFIED PT 13.0 INR 1.1 APTT 36.5 Sodium Potassium Chloride Carbon Dioxide Anion Gap BUN Creatinine Estim Creat Clear Calc Estimated GFR Random Glucose Calcium Total Bilirubin Direct Bilirubin AST ALT Alkaline Phosphatase Troponin I High Sens Total Protein Albumin Lipase Urine Color Urine Appearance Urine pH Ur Specific [place] Urine Protein Urine Glucose (UA) Urine Ketones Urine Blood Urine Nitrite Ur Leukocyte Esterase Urine RBC Urine WBC Ur Squamous Epith Cells Urine Bacteria Urine Mucus Coronavirus (PCR) POSITIVE A Influenza Type A (PCR) NEGATIVE Influenza Type B (PCR) NEGATIVE RSV RNA Qual (PCR) NEGATIVE 03/22/20 03/22/20 03/22/20 20:21 20:21 22:16 WBC RBC Hgb Hct MCV MCH MCHC RDW Plt Count MPV Immature Gran % (Auto) Neut % (Auto) Lymph % (Auto) [place] % (Auto) Eos % (Auto) Baso % (Auto) Lymph # (Auto) [place] # (Auto) Eos # (Auto) Baso # (Auto) Abs Immat Gran (auto) Absolute Neuts (auto) Absolute Nucleated RBC Nucleated RBC % (auto) Smear Tech's Comments PT INR APTT Sodium 138 Potassium 3.9 Chloride 101 Carbon Dioxide 25 Anion Gap 16 BUN 6 L Creatinine 0.93 Estim Creat Clear Calc 91.7 Estimated GFR > 60 Random Glucose 191 H Calcium 8.7 Total Bilirubin 1.1 H Direct Bilirubin 0.4 AST 377 H ALT 256 H Alkaline Phosphatase 181 H Troponin I High Sens 8.2 Total Protein 8.9 H Albumin 3.9 Lipase 34 Urine Color YELLOW Urine Appearance CLEAR Urine pH 7.0 Ur Specific [place] 1.025 Urine Protein NEG Urine Glucose (UA) 100 H Urine Ketones NEG Urine Blood 1+ H Urine Nitrite NEG Ur Leukocyte Esterase NEG Urine RBC 5-9 H Urine WBC 1-4 Ur Squamous Epith Cells 1+ Urine Bacteria 1+ Urine Mucus 1+ Coronavirus (PCR) Influenza Type A (PCR) Influenza Type B (PCR) RSV RNA Qual (PCR) 03/23/20 03/23/20 03/24/20 06:09 06:09 08:37 WBC 5.2 6.8 RBC 4.67 4.58 L Hgb 16.9 16.6 Hct 48.5 48.8 MCV 103.9 H 106.6 H MCH 36.2 H 36.2 H MCHC 34.8 34.0 RDW 12.3 12.8 Plt Count 200 204 MPV 10.7 10.5 Immature Gran % (Auto) 0.2 Neut % (Auto) 74.5 H Lymph % (Auto) 16.8 L [place] % (Auto) 8.3 Eos % (Auto) 0.0 Baso % (Auto) 0.2 Lymph # (Auto) 0.9 L [place] # (Auto) 0.4 Eos # (Auto) 0.0 Baso # (Auto) 0.0 Abs Immat Gran (auto) 0.01 Absolute Neuts (auto) 3.9 Absolute Nucleated RBC 0.000 0.000 Nucleated RBC % (auto) 0.0 0.0 Smear Tech's Comments PT INR APTT Sodium 136 Potassium 4.0 Chloride 102 Carbon Dioxide 22 Anion Gap 16 BUN 9 Creatinine 1.08 Estim Creat Clear Calc 79.0 Estimated GFR > 60 Random Glucose 219 H Calcium 8.6 Total Bilirubin 1.0 Direct Bilirubin AST 238 H ALT 200 H Alkaline Phosphatase 152 H Troponin I High Sens Total Protein 7.8 Albumin 3.4 L Lipase Urine Color Urine Appearance Urine pH Ur Specific [place] Urine Protein Urine Glucose (UA) Urine Ketones Urine Blood Urine Nitrite Ur Leukocyte Esterase Urine RBC Urine WBC Ur Squamous Epith Cells Urine Bacteria Urine Mucus Coronavirus (PCR) Influenza Type A (PCR) Influenza Type B (PCR) RSV RNA Qual (PCR) 03/24/20 08:37 WBC RBC Hgb Hct MCV MCH MCHC RDW Plt Count MPV Immature Gran % (Auto) Neut % (Auto) Lymph % (Auto) [place] % (Auto) Eos % (Auto) Baso % (Auto) Lymph # (Auto) [place] # (Auto) Eos # (Auto) Baso # (Auto) Abs Immat Gran (auto) Absolute Neuts (auto) Absolute Nucleated RBC Nucleated RBC % (auto) Smear Tech's Comments PT INR APTT Sodium 141 Potassium 3.5 Chloride 104 Carbon Dioxide 27 Anion Gap 14 BUN 15 D Creatinine 1.09 Estim Creat Clear Calc 78.2 Estimated GFR > 60 Random Glucose 100 D Calcium 8.5 Total Bilirubin Direct Bilirubin AST ALT Alkaline Phosphatase Troponin I High Sens Total Protein Albumin Lipase Urine Color Urine Appearance Urine pH Ur Specific [place] Urine Protein Urine Glucose (UA) Urine Ketones Urine Blood Urine Nitrite Ur Leukocyte Esterase Urine RBC Urine WBC Ur Squamous Epith Cells Urine Bacteria Urine Mucus Coronavirus (PCR) Influenza Type A (PCR) Influenza Type B (PCR) RSV RNA Qual (PCR) Assessment and Plan Assessment Anesthesia Assessment: Anesthesia Plan Discussed and Chart Reviewed Final Anesthetic Review ASA Class: II and Emergency Final Preanesthetic Review: No Changes in Pt Med Stat, Meds/Allgs Chart Reviewed, Consent Obtained/Reviewed and Anes Risks/Benef Reviewed Patient Risk: Intermediate Procedure Risk: Low Assessment/Block/Sedation in SS: Assess/Block/Sedation-SS Anesthetic Plan Anesthetic Plan: GA Disposition: Standard PACU
--- NOTE | 2020-03-24 12:32 | MHC.SHP ---
Pre-Procedural Eval Section A The patient is an INPATIENT: Yes Changes since office visit: Yes New Medical Problems The History & Physical has been completed within 30 days and I have reviewed it.: Yes Section B Chief Complaint: PYELONEPHRITIS, OBSTRUCTING CALCULI Details of Present Illness: left urteral stone wiyth hydro Relevant Family History (Specify if Yes): No Relevant Social History: None Present Medications: see Short Stay Collaborative assessment Medical History: No relevant PMH (covid) History of Previous Operations: No relevant previous surgery Allergies: Allergies Allergy/AdvReac Type Severity Reaction Status Date / Time No Known Allergies Allergy Unverified 11/14/19 18:52 [No Known Allergies*] Review of Systems Sugical H&P ROS: Negative: Constitution, Cardiovascular, Respiratory, Neurological, Psychiatric, Hem-Onc, Allergic/Immunologic, Gastrointestinal, Musculoskeletal, Integumentary, Endocrine and Eyes/Ears/Nose/Throat and Yes, Specify: Genitourinary (flank pain) Exam Surgical H&P Exam: Normal: HEENT, Normal: Heart, Normal: Lungs, Normal: Extremities, Normal: Abdomen, Normal: Skin and Normal: Neurological Plan Diagnosis/Plan: Unchanged (cysto left retrograde, laser stent) I have reviewed the history and physical and performed a pertinent physical examination on my patient. No changes have occurred unless specified.
--- NOTE | 2020-03-24 12:34 | PM.OP ---
Brief Operative Note Date of Service: 03/24/20 Pre-op diagnosis: left ureteral stone with hydro Post-op diagnosis: same Procedure: cysto left retrograde, laser stent Implants: double j stent 24cm 6 fr Surgeon: Heriberto Meek III, MD Anesthesia: GLMA Estimated blood loss (mL): 0 Pathology: other (stone) Condition: stable Disposition: floor (covid unit)
[2020-03-24] MEDS: Tamsulosin HCL 0.4 MG CAPSULE PO (14:10)
--- NOTE | 2020-03-24 17:13 | OP_ITS ---
SURGEON: Heriberto Meek III, MD PREOPERATIVE DIAGNOSIS: Left ureteral stone with hydronephrosis. POSTOPERATIVE DIAGNOSIS: Left ureteral stone with hydronephrosis. PROCEDURE PERFORMED: 1. Cystoscopy. 2. Left retrograde. 3. Left ureteral dilatation. 4. Left ureteroscopy. 5. Laser stone ablation. 6. Stone extraction. 7. Placement of double-J stent on the left. ESTIMATED BLOOD LOSS: None. COMPLICATIONS: None. ANESTHESIA: General. ASSISTANTS: SPECIMENS: SPECIMEN: Sent to pathology. DRAINS: 6-Cypriot x 24 cm double-J stent. DESCRIPTION OF PROCEDURE: The patient was taken to the operating room. After adequate anesthesia was obtained, had a time-out done demonstrating correct patient, correct procedure, correct site. Following this, the patient underwent cystoscopy and left retrograde demonstrated the distal stone with hydronephrosis. The patient's stone was in the distal third of the ureter. The patient then had ureteral dilatation followed by ureteroscopy and the stone was ablated with the laser. Stone started to pass cephalad. Therefore, it was caught with a flat wire basket and brought back down, so that we can laser within the basket. The basket was then removed. Stone fragments were then removed with a Timbo-Catch basket, energy conservation representative sample sent to pathology. A 6-Cypriot x 24 cm double-J stent was placed in good position by both fluoroscopy and cystoscopy. The patient tolerated the procedure well with no complications. Heriberto Meek III, MD SS/MODL / [id number]
[2020-03-25] MEDS: Lactated Ringers 1,000 ML 100 ML IVCONT (02:29)
[2020-03-25 03:43] VITALS: BP 116/90; PULSE 76; RESP 12; TEMP 37; O2SAT 94
[2020-03-25 07:43] VITALS: BP 126/86; PULSE 79; RESP 14; TEMP 36.6; O2SAT 95
[2020-03-25 08:25] LABS: Anion Gap 12 (12-20); Blood Urea Nitrogen 15 mg/dL (9-16); Calcium 8.1 mg/dL (8.4-10.2); Carbon Dioxide 27 mmol/L (22-29); Chloride 101 mmol/L (96-108); Estimated Glomerular Filt Rate > 60; Glucose Random 119 mg/dL (60-115); Potassium 3.5 mmol/l (3.3-5.1); Sodium 136 mmol/L (135-145)
--- NOTE | 2020-03-25 08:57 | HO.POSTANES ---
Post Anesthesia Evaluation Post Anesthesia Evaluation Vital Signs: Vital Signs Temp Pulse Resp BP Pulse Ox 03/25/20 07:43 98 F 79 14 126/86 95 03/25/20 03:43 98.6 F 76 12 116/90 H 94 03/24/20 23:08 98.3 F 101 H 20 132/89 94 Anesthesia: General LMA Mental Status: Awake Pain Control: Satisfactory Nausea/Vomiting: None Hydration: Adequate Anesthesia-Related Issues: No Anes. Related Issues
[2020-03-25] MEDS: Heparin Sodium,Porcine 5,000 UNIT/ML VIAL 5000 UNIT SUBCUT (09:40)
[2020-03-25] MEDS: Tamsulosin HCL 0.4 MG CAPSULE PO (09:40)
[2020-03-25] MEDS: 0.9 % Sodium Chloride Flush 3 ML SYRINGE IVFLUSH (09:43)
[2020-03-25 11:57] VITALS: BP 155/97; PULSE 83; RESP 22; TEMP 36.8; O2SAT 93
--- NOTE | 2020-03-25 12:12 | P.DS_ITS ---
DS: Providers Provider Date of Service: 03/25/20 Date of admission: 03/22/20 23:25 Primary care physician: None Physician Consults: 03/23/20 19:49 Consult to Urology Routine Consulting Provider: Edil Van Reason for consultation: obstructive 8mm ureteral calculi with hydroureteronephrosis Has provider been notified: No DS: Diagnosis Discharge Diagnosis (1) Hydronephrosis with obstructing calculus: Status: Acute (2) Hypertensive crisis: Status: Acute (3) COVID-19: Status: Acute (4) Acute pyelonephritis: Status: Acute (5) Urine retention: Status: Acute DS: Medications Discharge Medications Home Medications: Home Medications Medication Instructions Recorded Confirmed No Known Home Meds 03/22/20 03/22/20 Previous Rx's Medication Instructions Recorded cefuroxime axetil 500 mg PO BID #14 tab 03/25/20 tamsulosin [Flomax] 0.8 mg PO DAILY #60 cap 03/25/20 DS: Summary Hospital Course Hospital Course: Admission note HPI 59 yo M who denies any pmhx presents to the hospital with complains of abdominal pain that started this afternoon. Pain is located in the left upper quadrant, 10/10, non-radiating, sharp, crampy, associated with nausea and vomiting, pain medicine given in the ED helped relieve the pain, no exacerbating factors. reports hx of kidney stones. He is also complaining of abdominal pain. Pt reports that he had contact with his brother in law who was COVID positive and after getting the abdominal pain, he was concerned he may have contracted covid. He denies any cough, no sob, no fever no chills. On arrival to the ED patient has temp of 98.2?, heart rate of 99, respiratory rate of 24, blood pressure of 204/114, satting 97% on room air Labs are significant for WBC count of 7.2, hemoglobin of 17.5, sodium of 138, potassium of 3.9, total bili of 1.1, AST of 377, ALT of 256, alk-phos of 181, COVID-19 positive, abdominal CT showedLeft distal ureteral calculi with obstructive hydroureteronephrosis, enlarged left kidney and perinephric stranding UA pending Urology consulted: Recommended Toradol, prednisone, Flomax and will be seeing the patient in the morning Hospital course Patient admitted for evaluatio of abdominal pain. found to have left obstructing calculus with hydroureteronephrosis CT scan showing left ureteric stone with hydronephrosis Urology did cystoscopy with placement of stent and removal of the stone To follow up as outpatient in 2 weeks Pyelonephritis nephritic stranding on CT of abdomen of left side Continue Ceftriaxone for 3 days To be discharged on Ceftin to finish total of 10 days Urine retention Noted on CT scan along with likely BPH Bladder scan showed 1L retention Melgoza catheter placed and he was Started on Tamsulosin To DC on Melgoza and follow up with Urology Dr Meek as outpatient COVID 19 positive no respiratory symptoms during the hospital stay. on room air. self quarantine. Hypertensive urgency BP 204/114 on arrival Likely secondary to pain and stress Better controlled during the hospital stay with no active medications To monitor at home. Time Spent with Patient Time attestation: Total time spent providing and/or coordinating discharge services: Discharge coordination time: Greater than 30 minutes Physical Exam Vital Signs: Vital Signs: Last Vital Signs Temp 98.2 F 03/25/20 11:57 Pulse 83 03/25/20 11:57 Resp 22 H 03/25/20 11:57 BP 155/97 H 03/25/20 11:57 Pulse Ox 93 03/25/20 11:57 Body Mass Index 32.8 Const: Other: Constitutional : Alert, oriented, not in distress Neck : Normal inspection, Supple Cardiovascular : RRR, S1 S2, no lower extremity edema Respiratory : Good bilateral air entry, no crackles, wheezes or rhonchi Gastrointestinal: soft, lax, Normal bowel sounds, Non tender Skin : Warm/Dry, No rash Neurological : Alert & oriented x3, No focal deficit DS: Data Data Completed and Pending Pending studies at discharge: Pending at discharge 03/24/20 12:54 Surgical [PTH] Stat Labs on day of discharge: Laboratory Tests 03/22/20 03/22/20 03/22/20 20:21 20:21 20:21 WBC 7.2 RBC 4.80 Hgb 17.5 Hct 50.6 MCV 105.4 H MCH 36.5 H MCHC 34.6 RDW 12.5 Plt Count 194 MPV 10.4 Immature Gran % (Auto) 0.3 Neut % (Auto) 77.2 H Lymph % (Auto) 8.6 L [place] % (Auto) 13.1 H Eos % (Auto) 0.4 Baso % (Auto) 0.4 Lymph # (Auto) 0.6 L [place] # (Auto) 1.0 Eos # (Auto) 0.0 Baso # (Auto) 0.0 Abs Immat Gran (auto) 0.02 Absolute Neuts (auto) 5.6 Absolute Nucleated RBC 0.000 Nucleated RBC % (auto) 0.0 Smear Tech's Comments VERIFIED PT 13.0 INR 1.1 APTT 36.5 Sodium Potassium Chloride Carbon Dioxide Anion Gap BUN Creatinine Estim Creat Clear Calc Estimated GFR Random Glucose Calcium Total Bilirubin Direct Bilirubin AST ALT Alkaline Phosphatase Troponin I High Sens Total Protein Albumin Lipase Urine Color Urine Appearance Urine pH Ur Specific [place] Urine Protein Urine Glucose (UA) Urine Ketones Urine Blood Urine Nitrite Ur Leukocyte Esterase Urine RBC Urine WBC Ur Squamous Epith Cells Urine Bacteria Urine Mucus Coronavirus (PCR) POSITIVE A Influenza Type A (PCR) NEGATIVE Influenza Type B (PCR) NEGATIVE RSV RNA Qual (PCR) NEGATIVE 03/22/20 03/22/20 03/22/20 20:21 20:21 22:16 WBC RBC Hgb Hct MCV MCH MCHC RDW Plt Count MPV Immature Gran % (Auto) Neut % (Auto) Lymph % (Auto) [place] % (Auto) Eos % (Auto) Baso % (Auto) Lymph # (Auto) [place] # (Auto) Eos # (Auto) Baso # (Auto) Abs Immat Gran (auto) Absolute Neuts (auto) Absolute Nucleated RBC Nucleated RBC % (auto) Smear Tech's Comments PT INR APTT Sodium 138 Potassium 3.9 Chloride 101 Carbon Dioxide 25 Anion Gap 16 BUN 6 L Creatinine 0.93 Estim Creat Clear Calc 91.7 Estimated GFR > 60 Random Glucose 191 H Calcium 8.7 Total Bilirubin 1.1 H Direct Bilirubin 0.4 AST 377 H ALT 256 H Alkaline Phosphatase 181 H Troponin I High Sens 8.2 Total Protein 8.9 H Albumin 3.9 Lipase 34 Urine Color YELLOW Urine Appearance CLEAR Urine pH 7.0 Ur Specific [place] 1.025 Urine Protein NEG Urine Glucose (UA) 100 H Urine Ketones NEG Urine Blood 1+ H Urine Nitrite NEG Ur Leukocyte Esterase NEG Urine RBC 5-9 H Urine WBC 1-4 Ur Squamous Epith Cells 1+ Urine Bacteria 1+ Urine Mucus 1+ Coronavirus (PCR) Influenza Type A (PCR) Influenza Type B (PCR) RSV RNA Qual (PCR) 03/23/20 03/23/20 03/24/20 06:09 06:09 08:37 WBC 5.2 6.8 RBC 4.67 4.58 L Hgb 16.9 16.6 Hct 48.5 48.8 MCV 103.9 H 106.6 H MCH 36.2 H 36.2 H MCHC 34.8 34.0 RDW 12.3 12.8 Plt Count 200 204 MPV 10.7 10.5 Immature Gran % (Auto) 0.2 Neut % (Auto) 74.5 H Lymph % (Auto) 16.8 L [place] % (Auto) 8.3 Eos % (Auto) 0.0 Baso % (Auto) 0.2 Lymph # (Auto) 0.9 L [place] # (Auto) 0.4 Eos # (Auto) 0.0 Baso # (Auto) 0.0 Abs Immat Gran (auto) 0.01 Absolute Neuts (auto) 3.9 Absolute Nucleated RBC 0.000 0.000 Nucleated RBC % (auto) 0.0 0.0 Smear Tech's Comments PT INR APTT Sodium 136 Potassium 4.0 Chloride 102 Carbon Dioxide 22 Anion Gap 16 BUN 9 Creatinine 1.08 Estim Creat Clear Calc 79.0 Estimated GFR > 60 Random Glucose 219 H Calcium 8.6 Total Bilirubin 1.0 Direct Bilirubin AST 238 H ALT 200 H Alkaline Phosphatase 152 H Troponin I High Sens Total Protein 7.8 Albumin 3.4 L Lipase Urine Color Urine Appearance Urine pH Ur Specific [place] Urine Protein Urine Glucose (UA) Urine Ketones Urine Blood Urine Nitrite Ur Leukocyte Esterase Urine RBC Urine WBC Ur Squamous Epith Cells Urine Bacteria Urine Mucus Coronavirus (PCR) Influenza Type A (PCR) Influenza Type B (PCR) RSV RNA Qual (PCR) 03/24/20 03/25/20 08:37 07:39 WBC RBC Hgb Hct MCV MCH MCHC RDW Plt Count MPV Immature Gran % (Auto) Neut % (Auto) Lymph % (Auto) [place] % (Auto) Eos % (Auto) Baso % (Auto) Lymph # (Auto) [place] # (Auto) Eos # (Auto) Baso # (Auto) Abs Immat Gran (auto) Absolute Neuts (auto) Absolute Nucleated RBC Nucleated RBC % (auto) Smear Tech's Comments PT INR APTT Sodium 141 136 Potassium 3.5 3.5 Chloride 104 101 Carbon Dioxide 27 27 Anion Gap 14 12 BUN 15 D 15 Creatinine 1.09 0.87 Estim Creat Clear Calc 78.2 98.0 Estimated GFR > 60 > 60 Random Glucose 100 D 119 H Calcium 8.5 8.1 L Total Bilirubin Direct Bilirubin AST ALT Alkaline Phosphatase Troponin I High Sens Total Protein Albumin Lipase Urine Color Urine Appearance Urine pH Ur Specific [place] Urine Protein Urine Glucose (UA) Urine Ketones Urine Blood Urine Nitrite Ur Leukocyte Esterase Urine RBC Urine WBC Ur Squamous Epith Cells Urine Bacteria Urine Mucus Coronavirus (PCR) Influenza Type A (PCR) Influenza Type B (PCR) RSV RNA Qual (PCR) Discharge Plan Discharge Patient Disposition: Home, Self-Care Referrals: Physician,None [Primary Care Provider] - Discharge Medications: New tamsulosin [Flomax] 0.4 mg capsule 0.8 mg PO DAILY Qty: 60 RF: 2 cefuroxime axetil 500 mg tablet 500 mg PO BID Qty: 14 RF: 0 No Action No Known Home Meds RF: 0 Discharge Orders: Discharge Order (Routine); Ordered 03/25/20 Ordered By: Vita Thurman Diet: advance to usual diet Activity on Discharge: As tolerated Stand Alone Forms: Patient Portal Discharge page Visit Report Forms: Patient Portal Discharge page Care Plan Goals: Read below Health Concerns: Read below Plan of Treatment: You were admitted to the hospital for evaluation of pain. Images if your abdomen was consistent with obstructive stone in the ureter with urine retention and signs of infection of the kidney. Your treated with IV antibiotics and IV fluid with good response. Evaluated by urologist who placed a stent in the ureter and removed the stone. A Melgoza catheter was placed for urine retention. Continue tamsulosin as prescribed Continue Ceftin for 1 more week To follow-up with in 2 weeks in the office for removal of the Melgoza and evaluation of the stent
--- NOTE | 2020-03-25 13:37 | PC.NURSE ---
pt is awake, oriented and ambulatory. He has been switched from bedside drainage urinary bag to leg bag and has been shown how to empty the bag and is able to return demonstrate. Pt states he will make follow up appointment with urology as directed. Pt via wheelchair to entrance.
== END 2020-03-25 13:48 | disposition home or self-care (01) | DRG 446 ==
LOC: HO.ED 22:48 → HO.EDOVER 23:53 → HO.ICU 03-23 23:44 → HO.EDOVER 03-23 23:50 → HO.ISO 03-24 07:19
PROVIDERS: Nurse Practitioner Family; Urology; Admitting Provider Internal Medicine; Emergency Provider Emergency Medicine Emergency Medical Services; PCP Internal Medicine; Visit Provider Student in an Organized Health Care Education/Training Program
PROC: 0TC78ZZ Extirpation of Matter from Left Ureter, Via Natural or Artificial Opening Endoscopic (ICD-10-PCS; principal; 2020-03-24 11:20)
DX: N13.2 Hydronephrosis with renal and ureteral calculous obstruction (principal); U07.1 COVID-19; I16.9 Hypertensive crisis, unspecified; N40.1 Benign prostatic hyperplasia with lower urinary tract symptoms; R33.8 Other retention of urine; Z79.899 Other long term (current) drug therapy
CPT/HCPCS: 0241U; 36415; 71045; 74176; 80048; 80053; 80076; 81001; 83690; 84484; 85025; 85027; 85610; 85730; 88300; 93005; 96374; 96375; 99285; 99291; C1758; C1769; C2617; J0696; J1100; J1580; J1885; J2270; J2405; J3010; Q9967

== ENCOUNTER → 2020-04-14 13:28 | Outpatient (BNVA) | payer OTHER, SELFPAY | PROVIDERS: Visit Provider Urology | DX: Z48.816 Encounter for surgical aftercare following surgery on the genitourinary system (principal); N20.0 Calculus of kidney; N12 Tubulo-interstitial nephritis, not specified as acute or chronic; N32.0 Bladder-neck obstruction | CPT/HCPCS: 52000; 52310; 99212 ==

== ENCOUNTER 2020-04-23 13:03 | Outpatient (REF) | payer OTHER, SELFPAY ==
--- NOTE | ~2020-04-23 | US_ITS ---
EXAMINATION: US RETROPERITONEAL LIMITED (RENAL ONLY) CLINICAL INFORMATION: Calculus of kidney. COMPARISON: CT abdomen and pelvis 03/22/2020. TECHNIQUE: Real-time imaging of the kidneys. FINDINGS: RIGHT KIDNEY: 12.4 x 5.6 x 8.0 cm (SAG x AP x TRV). The kidney is normal in size, contour, and echogenicity. Renal cortical thickness is normal. No calculi or focal parenchymal lesions. No hydronephrosis. LEFT KIDNEY: 13.4 x 6.4 x 6.4 cm (SAG x AP x TRV). The kidney is normal in size, contour, and echogenicity. Renal cortical thickness is normal. No calculi or focal parenchymal lesions. Mild hydronephrosis with dilatation of the calyces. US/US renal BI IMPRESSION: Mild left hydronephrosis with dilatation of the calyces. Prior CT of 03/22/2020 demonstrated a distal ureteral calculus. Repeat CT scan for further evaluation as clinically warranted.
== END 2020-04-23 13:04 | disposition home or self-care (01) ==
LOC: HO.US 13:03
PROVIDERS: Visit Provider Urology
DX: N20.0 Calculus of kidney (principal)
CPT/HCPCS: 76775

== ENCOUNTER 2021-05-07 09:04 | Outpatient (REF) | payer OTHER, SELFPAY ==
[2021-05-07 09:34] LABS: MANUAL DIFF FLAG NO
[2021-05-07 09:51] LABS: Basophils Percent Auto 0.6 % (0-2); Eosinophils Absolute Auto 0.2 X10*3/uL (0.0-0.4); Eosinophils Percent Auto 2.6 % (0-4); Hematocrit 47.5 % (42.0-52.0); Hemoglobin 16.4 g/dl (14.0-18.0); Imm Gran Abs Auto 0.03 X10*3/uL (0.00-0.03); Imm Gran Pct Auto 0.5 % (0.0-0.4); Lymphocytes Absolute Auto 2.2 X10*3/uL (1.2-4.9); Lymphocytes Percent Auto 34.6 % (20-40); Mean Corpuscular HGB Conc 34.5 g/dl (31.0-36.0); Mean Corpuscular Hemoglobin 34.6 pg (27.0-33.0); Mean Corpuscular Volume 100.2 fL (80.0-98.0); Mean Platelet Volume 11.6 fL (9.4-12.4); Monocytes Absolute Auto 0.5 X10*3/uL (0.1-1.2); Monocytes Percent Auto 7.7 % (2-11); Neutrophils Absolute Auto 3.5 x10*3/uL (2.0-8.3); Platelet Count 209 X10*3/uL (160-400); Red Blood Count 4.74 X10*6/uL (4.60-5.80); Red Cell Distribution Width 11.5 % (11.0-16.0); White Blood Count 6.5 X10*3/uL (4.8-10.8)
[2021-05-07 10:43] LABS: Alanine Aminotransferase 163 U/L (0-40); Albumin Level 3.9 g/dL (3.5-5.0); Alkaline Phosphatase 252 U/L (39-117); Anion Gap 14 (12-20); Aspartate Amino Transferase 87 U/L (5-37); Bilirubin Total 0.8 mg/dL (0.0-1.0); Blood Urea Nitrogen 8 mg/dL (9-16); Calcium 9.9 mg/dL (8.4-10.2); Carbon Dioxide 29 mmol/L (22-29); Chloride 97 mmol/L (96-108); Cholesterol 239 mg/dL; Estimated Glomerular Filt Rate > 60; HDL Cholesterol 29 mg/dL; LDL Cholesterol Calculated 133 mg/dl; Potassium 3.9 mmol/L (3.3-5.1); Sodium 136 mmol/L (135-145); Total Protein 8.6 g/dL (6.5-8.0); Triglycerides 388 mg/dL
[2021-05-07 10:45] LABS: Glucose Random 449 mg/dL (60-115)
[2021-05-07 12:10] LABS: Prostate Specific Antigen 2.48 ng/mL (<0.05-4.0)
== END 2021-05-07 09:05 | disposition home or self-care (01) ==
LOC: HO.LAB 09:04
PROVIDERS: PCP Internal Medicine; Visit Provider Internal Medicine
DX: Z00.00 Encounter for general adult medical examination without abnormal findings (principal); Z12.5 Encounter for screening for malignant neoplasm of prostate; Z13.31 Encounter for screening for depression; N20.0 Calculus of kidney; I10 Essential (primary) hypertension
CPT/HCPCS: 36415; 80053; 80061; 84153; 85025

== ENCOUNTER 2021-05-11 18:19 | Inpatient (IN) | payer OTHER, SELFPAY ==
--- NOTE | 2021-05-11 | ECG_ITS ---
Test Reason : HYPERGLYCEMIA Blood Pressure : / mmHG Vent. Rate : 079 BPM Atrial Rate : 079 BPM P-R Int : 176 ms QRS Dur : 108 ms QT Int : 390 ms P-R-T Axes : 020 -08 006 degrees QTc Int : 447 ms Normal sinus rhythm Moderate voltage criteria for LVH, may be normal variant ( R in aVL , Jr product ) Borderline ECG When compared with ECG of 23-MAR-2020 11:10, T wave inversion now evident in Inferior leads Referred By: Generic ED Physician Electronically Signed By:MIGUELANGEL DUPREE
--- NOTE | ~2021-05-11 | US_ITS ---
EXAMINATION: US ABDOMEN LIMITED CLINICAL INFORMATION: Right upper quadrant pain. Abnormal LFTs.. COMPARISON: Renal ultrasound 04/23/[address] abdomen pelvis 03/22/2020 TECHNIQUE: Real-time imaging of the right upper quadrant abdominal viscera. Today's examination is mildly limited secondary to overlying bowel gas. FINDINGS: PANCREAS: Visualized portion of pancreas are normal in appearance. LIVER: The liver is normal in size. The liver contour is normal. Liver echogenicity is diffusely increased. No focal hepatic lesion. There is no intrahepatic biliary duct dilatation seen. GALLBLADDER: The gallbladder is physiologically distended without evidence of stones, sludge, polyps, wall thickening or pericholecystic fluid. Negative sonographic Buitrago's sign. COMMON BILE DUCT: Normal in caliber measuring 0.2 cm in diameter. RIGHT KIDNEY: Normal. No hydronephrosis. No renal calculi or focal parenchymal lesions. The kidney measures 12.1 cm in maximum dimension. FREE FLUID: None. US/US abdomen limited IMPRESSION: Diffusely increased liver echogenicity. This is a nonspecific finding but most suggestive of hepatic steatosis. Correlation with liver enzymes recommended.
--- NOTE | ~2021-05-11 | XR_ITS ---
EXAMINATION: XR CHEST CLINICAL INFORMATION: Dizziness and hyperglycemia. COMPARISON: Chest radiograph dated from 03/22/2020. TECHNIQUE: 2 views of the chest were obtained. FINDINGS: Stable prominence of the aortic arch and appearance of the cardiomediastinal silhouette. Low lung volumes with bibasilar subsegmental atelectases. No focal airspace opacities, pleural effusions or pneumothorax. No acute osseous abnormalities. Thoracic spondylosis. XR/XR chest 2V IMPRESSION: No acute cardiopulmonary findings.
[2021-05-11 18:33] VITALS: BP 146/91; PULSE 84; RESP 18; TEMP 36.9; O2SAT 96; BMI 29.1
[2021-05-11 18:49] LABS: Glucose, Whole Blood 599 mg/dL (60-115)
[2021-05-11 18:49] LABS: Glucose, Whole Blood > 600 mg/dL (60-115)
[2021-05-11 18:58] LABS: MANUAL DIFF FLAG NO
[2021-05-11 19:06] LABS: VBG Base Excess 2.2 mmol/L; VBG HCO3 27 mmol/L (22-26); VBG pCO2 45 mmHg; VBG pH 7.39 (7.32-7.43); VBG pO2 37 mmHg
[2021-05-11 19:09] LABS: Venous Blood Gas Refer to POC result
[2021-05-11 19:10] LABS: Basophils Percent Auto 0.4 % (0-2); Eosinophils Absolute Auto 0.1 X10*3/uL (0.0-0.4); Eosinophils Percent Auto 1.8 % (0-4); Hemoglobin 14.9 g/dl (14.0-18.0); Imm Gran Abs Auto 0.01 X10*3/uL (0.00-0.03); Imm Gran Pct Auto 0.2 % (0.0-0.4); Lymphocytes Absolute Auto 2.1 X10*3/uL (1.2-4.9); Lymphocytes Percent Auto 41.3 % (20-40); Mean Corpuscular HGB Conc 33.9 g/dl (31.0-36.0); Mean Corpuscular Hemoglobin 34.4 pg (27.0-33.0); Mean Corpuscular Volume 101.6 fL (80.0-98.0); Mean Platelet Volume 12.1 fL (9.4-12.4); Monocytes Absolute Auto 0.4 X10*3/uL (0.1-1.2); Monocytes Percent Auto 8.2 % (2-11); Neutrophils Absolute Auto 2.4 x10*3/uL (2.0-8.3); Neutrophils Percent Auto 48.1 % (45-73); Platelet Count 165 X10*3/uL (160-400); Red Blood Count 4.33 X10*6/uL (4.60-5.80); Red Cell Distribution Width 11.6 % (11.0-16.0)
[2021-05-11 19:31] LABS: Acetone, serum QL Negative (Negative)
[2021-05-11 19:34] VITALS: BP 139/91; PULSE 82; O2SAT 98
[2021-05-11 19:35] LABS: Alanine Aminotransferase 145 U/L (0-40); Albumin Level 3.5 g/dL (3.5-5.0); Alkaline Phosphatase 246 U/L (39-117); Anion Gap 15 (12-20); Aspartate Amino Transferase 127 U/L (5-37); Bilirubin Total 0.6 mg/dL (0.0-1.0); Blood Urea Nitrogen 7 mg/dL (9-16); Calcium 9.2 mg/dL (8.4-10.2); Carbon Dioxide 25 mmol/L (22-29); Chloride 95 mmol/L (96-108); Creatinine Clr Calc Pharmacy 67.9; Estimated Glomerular Filt Rate > 60; Glucose Random 666 mg/dL (60-115); Potassium 3.8 mmol/L (3.3-5.1); Sodium 131 mmol/L (135-145); Total Protein 7.7 g/dL (6.5-8.0)
[2021-05-11 19:49] LABS: Appearance Urine CLEAR; Color Urine YELLOW; Glucose Urine UA >=1000 MG/DL (NEG); Leukocyte Esterase Urine NEG (NEG); Nitrite Urine NEG (NEG); Specific Gravity - Urine <= 1.005 (1.005-1.025); Urine Blood NEG (NEG); Urine Ketones NEG (NEG); Urine Protein NEG (NEG-TRACE)
--- NOTE | 2021-05-11 19:54 | ED.DIZZY ---
HPI - Dizziness General Chief Complaint: Dizziness Stated Complaint: dizziness/blurry eye sight/high blood sugar/weight Time Seen by Provider: 05/11/21 19:54 Source: patient Mode of arrival: ambulatory Limitations: no limitations History of Present Illness HPI Narrative: patient has not been feeling well, losing a lot of weight and his throat was dry and he was urinating frequently. Over the past 2 weeks this has been getting worse. His sister checked his sugar and the glucometer was too high. He lost 11 lbs in 2 weeks. Patient states he has blurry vision. MD elicited complaint: lightheadedness Onset (ago): week(s) Timing: gradual onset Severity: moderate Exacerbating factors: nothing Associated symptoms: malaise Related Data Previous Rx's Medication Instructions Recorded cefuroxime axetil 500 mg tablet 500 mg PO BID #14 tab 03/25/20 tamsulosin 0.4 mg capsule (Flomax) 0.8 mg PO DAILY #60 cap 03/25/20 tamsulosin 0.4 mg capsule 0.4 mg PO BEDTIME #90 cap 04/14/20 Allergies Allergy/AdvReac Type Severity Reaction Status Date / Time No Known Allergies Allergy Verified 05/11/21 18:32 [No Known Allergies*] Review of Systems Constitutional: Constitutional: Reports no additional constitutional complaints Eyes: Eyes: Reports no additional eye complaints ENT: Denies dizziness Cardiovascular: Cardiovascular: Reports no additional cardiovascular complaints Respiratory: Respiratory: Reports as per HPI Gastrointestinal: Gastrointestinal: Reports no additional gastrointestinal complaints Musculoskeletal: Musculoskeletal: Reports no additional musculoskeletal complaints Integumentary/Breasts: Skin/Breast: Denies rash Neurologic: Reports system reviewed and no additional complaints, except as documented, Denies dizziness and Denies Sensory deficit (Neuro) Psychiatric: Psychiatric: Denies anxiety [facility] Past Medical History Medical History HTN (hypertension) Social History Social History Household Members: Spouse Housing: House Do you presently have visiting nurse or other home services: No Advance Directives: No service: No Current occupational status: unemployed Physical Exam Vital Signs: Vital Signs: Last Vital Signs Temp 97.7 F 05/11/21 21:58 Pulse 70 05/11/21 21:58 Resp 18 05/11/21 21:58 BP 131/89 05/11/21 21:58 Pulse Ox 97 05/11/21 21:58 BMI result Body Mass Index 29.1 Const: General: healthy appearing Nutritional Appearance: average body habitus Orientation/consciousness: oriented to person and patient oriented x3 Limitations: no limitations HENMT: Head: Yes normal to inspection Ears: external ears normal General nose exam: Normal external nose present Mouth: Normal oral and palatal mucosa present and oropharynx normal Throat: Yes posterior oropharynx normal Eyes: General: appearance normal, both eyes and all related structures Neck: Other: supple Neck: Yes normal visual inspection Chest: Chest palpation & inspection: normal inspection of the chest Resp: Auscultation: clear to auscultation bilaterally Cardio: Other: 4/6 ANALI Jugular venous distension: no JVD Rate: regular rate Rhythm: regular rhythm GI: Other: Mild RUQ tenderness Inspection: Yes normal to inspection Palpation (GI): Soft to palpation and No hepatosplenomegaly present Auscultation: normal bowel sounds : General: Yes no CVA tenderness Back/Spine/Pelvis: Back: no CVA tenderness Skin: General skin exam: no rashes or lesions noted Neuro: General: oriented to person and patient oriented x3 Cranial nerves: Yes CN's II-XII intact bilaterally Motor exam (neuro): 5/5 motor strength present throughout Sensory Exam: No Sensory deficit (Neuro) Extrem: General: Yes normal to inspection Psych: Appearance: grossly normal Course Reevaluation(s) Reevaluation #1: patient with new onset diabetes, glucose 666, no gap no acidosis. In addition patient with LFT abnormalities and US that shows fatty liver. With elevation of sugar and no close follow up will admit. Time: 23:15 MDM - Dizziness Lab Data Result diagrams: 05/11/21 18:51 05/11/21 18:51 Labs: Lab Results 05/11/21 05/11/21 05/11/21 Range/Units 18:41 18:43 18:51 WBC 5.0 (4.8-10.8) X10*3/uL RBC 4.33 L (4.60-5.80) X10*6/uL Hgb 14.9 (14.0-18.0) g/dl Hct 44.0 (42.0-52.0) % MCV 101.6 H (80.0-98.0) fL MCH 34.4 H (27.0-33.0) pg MCHC 33.9 (31.0-36.0) g/dl RDW 11.6 (11.0-16.0) % Plt Count 165 (160-400) X10*3/uL MPV 12.1 (9.4-12.4) fL Immature Gran % (Auto) 0.2 (0.0-0.4) % Neut % (Auto) 48.1 (45-73) % Lymph % (Auto) 41.3 H (20-40) % [place] % (Auto) 8.2 (2-11) % Eos % (Auto) 1.8 (0-4) % Baso % (Auto) 0.4 (0-2) % Lymph # (Auto) 2.1 (1.2-4.9) X10*3/uL [place] # (Auto) 0.4 (0.1-1.2) X10*3/uL Eos # (Auto) 0.1 (0.0-0.4) X10*3/uL Baso # (Auto) 0.0 (0.0-0.2) X10*3/uL Abs Immat Gran (auto) 0.01 (0.00-0.03) X10*3/uL Absolute Neuts (auto) 2.4 (2.0-8.3) x10*3/uL Absolute Nucleated RBC 0.000 (0.0-0.012) X10*3/uL Nucleated RBC % (auto) 0.0 (0.0-0.2) /100WBC VBG pH (7.32-7.43) VBG pCO2 mmHg VBG pO2 mmHg VBG HCO3 (22-26) mmol/L VBG O2 Saturation % VBG Base Excess mmol/L Sodium (135-145) mmol/L Potassium (3.3-5.1) mmol/L Chloride (96-108) mmol/L Carbon Dioxide (22-29) mmol/L Anion Gap (12-20) BUN (9-16) mg/dL Creatinine (0.5-1.4) mg/dL Estim Creat Clear Calc Estimated GFR POC Glucose > 600 H* 599 H* (60-115) mg/dL Random Glucose (60-115) mg/dL Calcium (8.4-10.2) mg/dL Total Bilirubin (0.0-1.0) mg/dL AST (5-37) U/L ALT (0-40) U/L Alkaline Phosphatase (39-117) U/L Total Protein (6.5-8.0) g/dL Albumin (3.5-5.0) g/dL Lipase (8-78) U/L Urine Color Urine Appearance Urine pH (5.0-8.0) Ur Specific [place] (1.005-1.025) Urine Protein (NEG-TRACE) MG/DL Urine Glucose (UA) (NEG) MG/DL Urine Ketones (NEG) MG/DL Urine Blood (NEG) Urine Nitrite (NEG) Ur Leukocyte Esterase (NEG) Urine RBC (0) /HPF Urine WBC (0-4) /HPF Ur Squamous Epith Cells /LPF Urine Bacteria /LPF Urine Yeast /HPF Acetone, Qual (Negative) 05/11/21 05/11/21 05/11/21 Range/Units 18:51 18:51 18:56 WBC (4.8-10.8) X10*3/uL RBC (4.60-5.80) X10*6/uL Hgb (14.0-18.0) g/dl Hct (42.0-52.0) % MCV (80.0-98.0) fL MCH (27.0-33.0) pg MCHC (31.0-36.0) g/dl RDW (11.0-16.0) % Plt Count (160-400) X10*3/uL MPV (9.4-12.4) fL Immature Gran % (Auto) (0.0-0.4) % Neut % (Auto) (45-73) % Lymph % (Auto) (20-40) % [place] % (Auto) (2-11) % Eos % (Auto) (0-4) % Baso % (Auto) (0-2) % Lymph # (Auto) (1.2-4.9) X10*3/uL [place] # (Auto) (0.1-1.2) X10*3/uL Eos # (Auto) (0.0-0.4) X10*3/uL Baso # (Auto) (0.0-0.2) X10*3/uL Abs Immat Gran (auto) (0.00-0.03) X10*3/uL Absolute Neuts (auto) (2.0-8.3) x10*3/uL Absolute Nucleated RBC (0.0-0.012) X10*3/uL Nucleated RBC % (auto) (0.0-0.2) /100WBC VBG pH 7.39 (7.32-7.43) VBG pCO2 45 mmHg VBG pO2 37 mmHg VBG HCO3 27 H (22-26) mmol/L VBG O2 Saturation 61.0 % VBG Base Excess 2.2 mmol/L Sodium 131 L (135-145) mmol/L Potassium 3.8 (3.3-5.1) mmol/L Chloride 95 L (96-108) mmol/L Carbon Dioxide 25 (22-29) mmol/L Anion Gap 15 (12-20) BUN 7 L (9-16) mg/dL Creatinine 1.17 (0.5-1.4) mg/dL Estim Creat Clear Calc 67.9 Estimated GFR > 60 POC Glucose (60-115) mg/dL Random Glucose 666 H* (60-115) mg/dL Calcium 9.2 D (8.4-10.2) mg/dL Total Bilirubin 0.6 (0.0-1.0) mg/dL AST 127 H (5-37) U/L ALT 145 H (0-40) U/L Alkaline Phosphatase 246 H (39-117) U/L Total Protein 7.7 (6.5-8.0) g/dL Albumin 3.5 (3.5-5.0) g/dL Lipase 65 (8-78) U/L Urine Color Urine Appearance Urine pH (5.0-8.0) Ur Specific [place] (1.005-1.025) Urine Protein (NEG-TRACE) MG/DL Urine Glucose (UA) (NEG) MG/DL Urine Ketones (NEG) MG/DL Urine Blood (NEG) Urine Nitrite (NEG) Ur Leukocyte Esterase (NEG) Urine RBC (0) /HPF Urine WBC (0-4) /HPF Ur Squamous Epith Cells /LPF Urine Bacteria /LPF Urine Yeast /HPF Acetone, Qual Negative (Negative) 05/11/21 05/11/21 05/11/21 Range/Units 19:37 21:32 22:52 WBC (4.8-10.8) X10*3/uL RBC (4.60-5.80) X10*6/uL Hgb (14.0-18.0) g/dl Hct (42.0-52.0) % MCV (80.0-98.0) fL MCH (27.0-33.0) pg MCHC (31.0-36.0) g/dl RDW (11.0-16.0) % Plt Count (160-400) X10*3/uL MPV (9.4-12.4) fL Immature Gran % (Auto) (0.0-0.4) % Neut % (Auto) (45-73) % Lymph % (Auto) (20-40) % [place] % (Auto) (2-11) % Eos % (Auto) (0-4) % Baso % (Auto) (0-2) % Lymph # (Auto) (1.2-4.9) X10*3/uL [place] # (Auto) (0.1-1.2) X10*3/uL Eos # (Auto) (0.0-0.4) X10*3/uL Baso # (Auto) (0.0-0.2) X10*3/uL Abs Immat Gran (auto) (0.00-0.03) X10*3/uL Absolute Neuts (auto) (2.0-8.3) x10*3/uL Absolute Nucleated RBC (0.0-0.012) X10*3/uL Nucleated RBC % (auto) (0.0-0.2) /100WBC VBG pH (7.32-7.43) VBG pCO2 mmHg VBG pO2 mmHg VBG HCO3 (22-26) mmol/L VBG O2 Saturation % VBG Base Excess mmol/L Sodium (135-145) mmol/L Potassium (3.3-5.1) mmol/L Chloride (96-108) mmol/L Carbon Dioxide (22-29) mmol/L Anion Gap (12-20) BUN (9-16) mg/dL Creatinine (0.5-1.4) mg/dL Estim Creat Clear Calc Estimated GFR POC Glucose 445 H* 308 H (60-115) mg/dL Random Glucose (60-115) mg/dL Calcium (8.4-10.2) mg/dL Total Bilirubin (0.0-1.0) mg/dL AST (5-37) U/L ALT (0-40) U/L Alkaline Phosphatase (39-117) U/L Total Protein (6.5-8.0) g/dL Albumin (3.5-5.0) g/dL Lipase (8-78) U/L Urine Color YELLOW Urine Appearance CLEAR Urine pH 6.0 (5.0-8.0) Ur Specific [place] <= 1.005 (1.005-1.025) Urine Protein NEG (NEG-TRACE) MG/DL Urine Glucose (UA) >=1000 H (NEG) MG/DL Urine Ketones NEG (NEG) MG/DL Urine Blood NEG (NEG) Urine Nitrite NEG (NEG) Ur Leukocyte Esterase NEG (NEG) Urine RBC 0 (0) /HPF Urine WBC 0 (0-4) /HPF Ur Squamous Epith Cells NONE /LPF Urine Bacteria NONE /LPF Urine Yeast 1+ /HPF Acetone, Qual (Negative) Imaging Data liver and Gallbladder US: Radiologist's impression: IMPRESSION: Diffusely increased liver echogenicity. This is a nonspecific finding but most suggestive of hepatic steatosis. Correlation with liver enzymes recommended. Discharge Plan Discharge Clinical Impression: Diabetes mellitus, new onset, Fatty infiltration of liver, Abnormal liver enzymes Patient Disposition: Admitted As Inpatient
[2021-05-11 19:58] LABS: RBC Urine 0 /HPF (0); WBC Urine 0 /HPF (0-4)
[2021-05-11 20:23] LABS: Lipase 65 U/L (8-78)
[2021-05-11] MEDS: Insulin Lispro 100 UNIT/ML 3 ML VIAL 10 UNIT SUBCUT (20:43)
[2021-05-11] MEDS: 0.9 % Sodium Chloride 1,000 ML 999 ML IVCONT ×2 (20:43→21:22)
[2021-05-11 21:37] LABS: Glucose, Whole Blood 445 mg/dL (60-115)
[2021-05-11 21:58] VITALS: BP 131/89; PULSE 70; RESP 18; TEMP 36.5; O2SAT 97
[2021-05-11 22:56] LABS: Glucose, Whole Blood 308 mg/dL (60-115)
[2021-05-11 22:57] VITALS: BP 136/84; PULSE 77; RESP 18; TEMP 36.7; O2SAT 97
--- NOTE | 2021-05-11 23:01 | PM.IMHP ---
History of Present Illness Date of Service: 05/11/21 Chief Complaint: elevated blood sugar level 60-year-old male with a past medical history of hypertension, BPH presented to the hospital with a chief complaint of elevated blood sugar level. Patient reported that over the past 2 weeks he has been not feeling well, has been having increased thirst and urination. he went to his sister's house where he had his blood sugar levels checked with the fingerstick glucose check at home and noted to have elevated blood sugars without any number; subsequently sister suggested him to go to the hospital for further evaluation. Patient reports he has intermittent abdominal discomfort but denies any nausea vomiting. Denies any chest pain or palpitations. Denies any fever chills cough, urinary symptoms. Denies any recent travel or sick contacts. Denies any concerns for Food poisoning. Review of all other systems is negative except mentioned above ER course: Per ER team patient noted of fingerstick glucose greater than 600; blood chemistry showed no evidence of anion gap; patient not in DKA; given lispro 10 units and IV fluids. Admitted to the hospital for further management. Mention patient has no PCP for outpatient follow-up. [facility] Medical History HTN (hypertension) Pertinent family history: denies any diabetes in parents Social History Household Members: Spouse Housing: House Do you presently have visiting nurse or other home services: No Advance Directives: No service: No Current occupational status: unemployed Meds Allergies Allergy/AdvReac Type Severity Reaction Status Date / Time No Known Allergies Allergy Verified 05/11/21 18:32 [No Known Allergies*] Active Medications: Current Medications Acetaminophen (Acetaminophen 325 Mg Tablet) 650 mg PO Q6H PRN PRN Reason: Pain, Mild (Pain Scale 1-3) Enoxaparin Sodium (Enoxaparin Sodium 40 Mg/0.4 Ml Syringe) 40 mg SUBCUT Q24H VERÓNICA Sodium Chloride (Ns) 1,000 mls @ 100 mls/hr IVCONT .Q10H VERÓNICA Melatonin (Melatonin 3 Mg Tablet) 6 mg PO BEDTIME PRN PRN Reason: Insomnia Senna (Sennosides 8.6 Mg Tablet) 17.2 mg PO BEDTIME PRN PRN Reason: Constipation Sodium Chloride (0.9 % Sodium Chloride Flush 3 Ml Syringe) 3 ml IVFLUSH QSHIFT VERÓNICA Physical Exam Vital Signs and Narrative: Vital Signs: Last Vital Signs Temp 97.7 F 05/11/21 21:58 Pulse 70 05/11/21 21:58 Resp 18 05/11/21 21:58 BP 131/89 05/11/21 21:58 Pulse Ox 97 05/11/21 21:58 BMI result Body Mass Index 29.1 Gen: Appears be in no acute distress HEENT: NCAT, Moist mucosa. Pulmonary: Vesicular breath sounds, fair air entry CVS: Normal S1-S2 Abdomen: BS+, Soft, Nontender Extremities: Warm well perfused Neuro: Alert and awake. Results Labs CBC and Chem 7: 05/11/21 18:51 05/11/21 18:51 Labs: Laboratory Results - last 24 hr 05/11/21 05/11/21 05/11/21 18:41 18:43 18:51 MCV 101.6 H MCH 34.4 H MCHC 33.9 RDW 11.6 Plt Count 165 MPV 12.1 Immature Gran % (Auto) 0.2 Neut % (Auto) 48.1 Lymph % (Auto) 41.3 H [place] % (Auto) 8.2 Eos % (Auto) 1.8 Baso % (Auto) 0.4 Lymph # (Auto) 2.1 [place] # (Auto) 0.4 Eos # (Auto) 0.1 Baso # (Auto) 0.0 Abs Immat Gran (auto) 0.01 Absolute Neuts (auto) 2.4 Absolute Nucleated RBC 0.000 Nucleated RBC % (auto) 0.0 VBG pH VBG pCO2 VBG pO2 VBG HCO3 VBG O2 Saturation VBG Base Excess Anion Gap Estim Creat Clear Calc Estimated GFR POC Glucose > 600 H* 599 H* Random Glucose Calcium Total Bilirubin AST ALT Alkaline Phosphatase Total Protein Albumin Lipase Urine Color Urine Appearance Urine pH Ur Specific [place] Urine Protein Urine Glucose (UA) Urine Ketones Urine Blood Urine Nitrite Ur Leukocyte Esterase Urine RBC Urine WBC Ur Squamous Epith Cells Urine Bacteria Urine Yeast Acetone, Qual 05/11/21 05/11/21 05/11/21 18:51 18:51 18:56 MCV MCH MCHC RDW Plt Count MPV Immature Gran % (Auto) Neut % (Auto) Lymph % (Auto) [place] % (Auto) Eos % (Auto) Baso % (Auto) Lymph # (Auto) [place] # (Auto) Eos # (Auto) Baso # (Auto) Abs Immat Gran (auto) Absolute Neuts (auto) Absolute Nucleated RBC Nucleated RBC % (auto) VBG pH 7.39 VBG pCO2 45 VBG pO2 37 VBG HCO3 27 H VBG O2 Saturation 61.0 VBG Base Excess 2.2 Anion Gap 15 Estim Creat Clear Calc 67.9 Estimated GFR > 60 POC Glucose Random Glucose 666 H* Calcium 9.2 D Total Bilirubin 0.6 AST 127 H ALT 145 H Alkaline Phosphatase 246 H Total Protein 7.7 Albumin 3.5 Lipase 65 Urine Color Urine Appearance Urine pH Ur Specific [place] Urine Protein Urine Glucose (UA) Urine Ketones Urine Blood Urine Nitrite Ur Leukocyte Esterase Urine RBC Urine WBC Ur Squamous Epith Cells Urine Bacteria Urine Yeast Acetone, Qual Negative 05/11/21 05/11/21 05/11/21 19:37 21:32 22:52 MCV MCH MCHC RDW Plt Count MPV Immature Gran % (Auto) Neut % (Auto) Lymph % (Auto) [place] % (Auto) Eos % (Auto) Baso % (Auto) Lymph # (Auto) [place] # (Auto) Eos # (Auto) Baso # (Auto) Abs Immat Gran (auto) Absolute Neuts (auto) Absolute Nucleated RBC Nucleated RBC % (auto) VBG pH VBG pCO2 VBG pO2 VBG HCO3 VBG O2 Saturation VBG Base Excess Anion Gap Estim Creat Clear Calc Estimated GFR POC Glucose 445 H* 308 H Random Glucose Calcium Total Bilirubin AST ALT Alkaline Phosphatase Total Protein Albumin Lipase Urine Color YELLOW Urine Appearance CLEAR Urine pH 6.0 Ur Specific [place] <= 1.005 Urine Protein NEG Urine Glucose (UA) >=1000 H Urine Ketones NEG Urine Blood NEG Urine Nitrite NEG Ur Leukocyte Esterase NEG Urine RBC 0 Urine WBC 0 Ur Squamous Epith Cells NONE Urine Bacteria NONE Urine Yeast 1+ Acetone, Qual Imaging Radiologist's Impressions: Impressions Chest X-Ray 05/11/21 18:59 IMPRESSION: No acute cardiopulmonary findings. Abdomen Ultrasound 05/11/21 20:24 IMPRESSION: Diffusely increased liver echogenicity. This is a nonspecific finding but most suggestive of hepatic steatosis. Correlation with liver enzymes recommended. Assessment and Plan (1) Diabetes mellitus, new onset: Status: Acute (2) Transaminitis: Status: Acute Plan 60-year-old male with a past medical history of hypertension, BPH presented to the hospital with a chief complaint of elevated blood sugar level. Noted to have new onset diabetes and transaminitis. Admitted for further management. New onset diabetes: Patient's random blood glucose levels were greater than 600s. not in DKA or HHS Improving with IV fluids and lispro Will give the patient on Lantus 20 units and insulin sliding scale Will obtain hemoglobin A1c. Outpatient endocrine follow-up Transaminitis: right upper quadrant ultrasound showed hepatic steatosis; normal gallbladder. will obtain acute hepatitis panel. Trend liver enzymes. DVT prophylaxis: Lovenox Code status: Full code Quality Stroke Does the patient have a stroke diagnosis?: No VTE Prior VTE?: No VTE Risk Level:: Medical - moderate - high VTE Device Contraindication: Treatment Not Indicated VTE Drug Contraindication: N/A - Med Ordered
[2021-05-11] MEDS: 0.9 % Sodium Chloride 1,000 ML 100 ML IVCONT (23:41)
[2021-05-11] MEDS: Insulin Glargine,Hum.rec.anlog 100 UNIT/ML 10 ML VIAL 20 UNIT SUBCUT (23:44)
--- NOTE | 2021-05-12 00:52 | PC.NURSE ---
pt is a&o, no sob or chest pain. pt does have a steady gait. pt medicated per Mar. Iv, labs collected and sent. Poc reported to Provider.
[2021-05-12 01:13] LABS: Glucose, Whole Blood 228 mg/dL (60-115)
[2021-05-12 03:56] LABS: Estimated Average Glucose 355 mg/dL
[2021-05-12 04:54] VITALS: BP 109/71; PULSE 73; RESP 14; TEMP 36.6; O2SAT 96
[2021-05-12 04:56] LABS: MANUAL DIFF FLAG NO
[2021-05-12 05:00] LABS: Basophils Percent Auto 0.3 % (0-2); Eosinophils Absolute Auto 0.2 X10*3/uL (0.0-0.4); Eosinophils Percent Auto 3.6 % (0-4); Hematocrit 40.4 % (42.0-52.0); Hemoglobin 13.5 g/dl (14.0-18.0); Imm Gran Abs Auto 0.01 X10*3/uL (0.00-0.03); Imm Gran Pct Auto 0.2 % (0.0-0.4); Lymphocytes Absolute Auto 2.8 X10*3/uL (1.2-4.9); Lymphocytes Percent Auto 48.4 % (20-40); Mean Corpuscular HGB Conc 33.4 g/dl (31.0-36.0); Mean Corpuscular Hemoglobin 33.7 pg (27.0-33.0); Mean Corpuscular Volume 100.7 fL (80.0-98.0); Mean Platelet Volume 12.2 fL (9.4-12.4); Monocytes Absolute Auto 0.5 X10*3/uL (0.1-1.2); Neutrophils Absolute Auto 2.2 x10*3/uL (2.0-8.3); Neutrophils Percent Auto 38.5 % (45-73); Platelet Count 146 X10*3/uL (160-400); Red Blood Count 4.01 X10*6/uL (4.60-5.80); Red Cell Distribution Width 11.4 % (11.0-16.0); White Blood Count 5.8 X10*3/uL (4.8-10.8)
[2021-05-12 05:17] LABS: Alanine Aminotransferase 126 U/L (0-40); Alkaline Phosphatase 206 U/L (39-117); Anion Gap 11 (12-20); Aspartate Amino Transferase 122 U/L (5-37); Bilirubin Direct 0.3 mg/dL (0.0-0.5); Bilirubin Total 0.6 mg/dL (0.0-1.0); Blood Urea Nitrogen 5 mg/dL (9-16); Calcium 8.1 mg/dL (8.4-10.2); Carbon Dioxide 25 mmol/L (22-29); Chloride 104 mmol/L (96-108); Cholesterol 147 mg/dL; Creatinine Clr Calc Pharmacy 116.9; Estimated Glomerular Filt Rate > 60; Glucose Random 229 mg/dL (60-115); HDL Cholesterol 21 mg/dL; LDL Cholesterol Calculated 88 mg/dl; Potassium 2.9 mmol/L (3.3-5.1); Sodium 137 mmol/L (135-145); Total Protein 6.4 g/dL (6.5-8.0); Triglycerides 194 mg/dL
[2021-05-12 05:33] LABS: HBS Num1 0.12 mIU/mL (0-7.99); HBc Num1 0.11 S/CO (0.00-0.79); Hepatitis A Antibody IgM 0.34 Index (0-0.79); Hepatitis B Core Antibody Nonreactive (Nonreactive); ~HepC Num1 0.14 S/CO (0.00-0.79); ~Hepatitis A Antibody IgM Nonreactive (Nonreactive); ~Hepatitis B Surface Antibody NONREACTIVE (Nonreactive); ~Hepatitis C Antibody Nonreactive (Nonreactive)
[2021-05-12 05:34] LABS: HBsAGNum1 0.21 S/CO (0.00-0.99); Hepatitis B Surface Antigen Negative (Negative)
[2021-05-12 07:05] VITALS: BP 109/91; PULSE 70; RESP 15; O2SAT 97
[2021-05-12 07:11] LABS: Glucose, Whole Blood 206 mg/dL (60-115)
[2021-05-12] MEDS: Insulin Lispro 100 UNIT/ML 3 ML VIAL SUBCUT ×2 (07:58→13:33)
--- NOTE | 2021-05-12 08:09 | PHA.MEDREC ---
Pharmacy Consult ? Medication Reconciliation Pharmacy has completed the medication reconciliation. Patient reports only on a BP medications. Keshia Braun, JoeD
[2021-05-12] MEDS: 0.9 % Sodium Chloride Flush 3 ML SYRINGE IVFLUSH (09:00)
[2021-05-12] MEDS: Enoxaparin Sodium 40 MG/0.4 ML SYRINGE SUBCUT (09:00)
[2021-05-12] MEDS: Potassium Chloride ER 20 MEQ TAB.ER.PRT 40 MEQ PO (09:00)
[2021-05-12 09:01] VITALS: BP 119/83; PULSE 75; RESP 18; O2SAT 97
[2021-05-12 09:03] LABS: Magnesium 1.6 mg/dL (1.6-2.6)
[2021-05-12] MEDS: 0.9 % Sodium Chloride 1,000 ML 100 ML IVCONT (09:06)
--- NOTE | 2021-05-12 09:11 | PC.NURSE ---
Patient awake and alert. skin PWD, resp even and non labored. speaking in full, clear sentences. denies dizziness at this time, states he is feeling better. no c/o pain. medicated per orders. awaiting bed for admission
[2021-05-12 09:14] LABS: COVID-19 Test Negative (Negative)
--- NOTE | 2021-05-12 10:07 | MHC.CM.PN ---
Met with patient in regards to discharge planning. Patient lives with his sig other, Heather, ambulates independently and had no services prior to coming to the hospital. No services anticipated to be needed because patient is not homebound. PCP verified as Dr Alejandre. HCP verified to be on file. Patient received 3 Moderna vaccines. IMM explained and signed. Heather will transport patient home when medically stable. Continue to monitor for d/c needs.
--- NOTE | 2021-05-12 11:29 | PC.NURSE ---
pt a&ox3, denies dizziness/difficulty breathing/pain, speaking in full sentances, pt ambulating independently to bath room, NaCl @ 100ml/hr, pending bed assignment, will continue to monitor.
[2021-05-12 13:24] LABS: Glucose, Whole Blood 199 mg/dL (60-115)
[2021-05-12] MEDS: metFORMIN HCl 500 MG TABLET PO (13:32)
--- NOTE | 2021-05-12 13:35 | PC.NURSE ---
pt medicated per order
[2021-05-12 13:56] LABS: Alanine Aminotransferase 180 U/L (0-40); Albumin Level 3.4 g/dL (3.5-5.0); Alkaline Phosphatase 209 U/L (39-117); Anion Gap 12 (12-20); Aspartate Amino Transferase 190 U/L (5-37); Bilirubin Direct 0.3 mg/dL (0.0-0.5); Bilirubin Total 0.8 mg/dL (0.0-1.0); Blood Urea Nitrogen 4 mg/dL (9-16); Calcium 8.8 mg/dL (8.4-10.2); Carbon Dioxide 25 mmol/L (22-29); Chloride 104 mmol/L (96-108); Creatinine Clr Calc Pharmacy 113.6; Estimated Glomerular Filt Rate > 60; Glucose Random 218 mg/dL (60-115); Potassium 3.7 mmol/L (3.3-5.1); Sodium 137 mmol/L (135-145); Total Protein 7.4 g/dL (6.5-8.0)
[2021-05-12 14:35] VITALS: BP 146/93; PULSE 78; RESP 15; TEMP 36.8; O2SAT 96
--- NOTE | 2021-05-12 14:42 | P.DS_ITS ---
DS: Providers Provider Date of Service: 05/12/21 Date of admission: 05/11/21 22:57 Primary care physician: Unknown Physician Attending physician on discharge: Vj Du Discharging clinician: Rosario Kumar DS: Diagnosis Discharge Diagnosis (1) Diabetes mellitus, new onset: Status: Acute (2) Transaminitis: Status: Acute DS: Summary Hospital Course Hospital Course: Hp as per admitting provider 60-year-old male with a past medical history of hypertension, BPH presented to the hospital with a chief complaint of elevated blood sugar level.?Patient reported that over the past 2 weeks he has been not feeling well, has been having increased thirst and urination. ?He went to his sister's house where he had his blood? sugar levels checked with the fingerstick glucose check at home and noted to have elevated blood sugars without any number; subsequently sister suggested him to go to the hospital for further evaluation.?Patient reports he has intermittent abdominal discomfort but denies any nausea vomiting.?Denies any chest pain or palpitations.?Denies any fever chills cough, urinary symptoms.?Denies any recent travel or sick contacts.? Denies any concerns for? Food poisoning. Review of all other systems is negative except mentioned above New onset diabetes mellitus. Blood sugars initially noted to be over 600. Patient had no history of diabetes although in his family he does. His A1c was 14.0. He was treated with insulin sliding scale and Lantus. He was not noted to be in DKA any time he did have low potassium which corrected with replacement. He will be sent home with metformin 500 mg daily and Lantus 20 mg at bedtime. He eats to follow-up with the hand engraver through [facility]. He was prescribed a new meter and he is to check his blood sugars 4 times a day before meals and keep a log of his numbers. Transaminitis. History of alcohol abuse. Received IV fluids, abdominal ultrasound did show hepatic steatosis. Recheck liver panel on Monday and follow up with primary care provider. Time Spent with Patient Time attestation: Total time spent providing and/or coordinating discharge services: Discharge coordination time: Greater than 30 minutes Quality: Stroke Does the patient have a stroke diagnosis?: No Physical Exam Vital Signs: Vital Signs: Last Vital Signs Temp 98.3 F 05/12/21 14:35 Pulse 78 05/12/21 14:35 Resp 15 05/12/21 14:35 BP 146/93 H 05/12/21 14:35 Pulse Ox 96 05/12/21 14:35 BMI result Body Mass Index 29.1 Appearing in no acute distress head is normocephalic atraumatic eyes pupils are PERRLA sclera is anicteric mouth throat mucous membranes are intact and moist neck is supple no lymphadenopathy, no JVD noted lung sounds are clear to auscultation heart regular rate rhythm, clear S1, S2 positive bowel sounds, abdomen is soft, nontender neuro patient is alert x3, no focal deficits DS: Data Data Completed and Pending Completed studies during hospitalization [Text1]: Procedures Dilation of Left Ureter with Intraluminal Device, Via Natural or Artificial Opening Endoscopic (03/22/20) Extirpation of Matter from Left Ureter, Via Natural or Artificial Opening Endoscopic (03/22/20) Fluoroscopy of Left Kidney, Ureter and Bladder (03/22/20) Labs on day of discharge: Laboratory Results - last 24 hr 05/11/21 05/11/21 05/11/21 18:41 18:43 18:51 WBC 5.0 RBC 4.33 L Hgb 14.9 Hct 44.0 MCV 101.6 H MCH 34.4 H MCHC 33.9 RDW 11.6 Plt Count 165 MPV 12.1 Immature Gran % (Auto) 0.2 Neut % (Auto) 48.1 Lymph % (Auto) 41.3 H Swisher % (Auto) 8.2 Eos % (Auto) 1.8 Baso % (Auto) 0.4 Lymph # (Auto) 2.1 Swisher # (Auto) 0.4 Eos # (Auto) 0.1 Baso # (Auto) 0.0 Abs Immat Gran (auto) 0.01 Absolute Neuts (auto) 2.4 Absolute Nucleated RBC 0.000 Nucleated RBC % (auto) 0.0 VBG pH VBG pCO2 VBG pO2 VBG HCO3 VBG O2 Saturation VBG Base Excess Sodium Potassium Chloride Carbon Dioxide Anion Gap BUN Creatinine Estim Creat Clear Calc Estimated GFR POC Glucose > 600 H* 599 H* Random Glucose Estimat Average Glucose Hemoglobin A1c % Calcium Magnesium Total Bilirubin Direct Bilirubin AST ALT Alkaline Phosphatase Total Protein Albumin Triglycerides Cholesterol LDL Cholesterol, Calc HDL Cholesterol Lipase Urine Color Urine Appearance Urine pH Ur Specific [place] Urine Protein Urine Glucose (UA) Urine Ketones Urine Blood Urine Nitrite Ur Leukocyte Esterase Urine RBC Urine WBC Ur Squamous Epith Cells Urine Bacteria Urine Yeast Acetone, Qual COVID-19 ([facility]) COVID-19 Clin Com Hepatitis A IgM Ab Hep Bs Antigen Hep Bs Antibody Hep B Core Total Ab Hepatitis C Ab (EIA) 05/11/21 05/11/21 05/11/21 18:51 18:51 18:51 WBC RBC Hgb Hct MCV MCH MCHC RDW Plt Count MPV Immature Gran % (Auto) Neut % (Auto) Lymph % (Auto) Swisher % (Auto) Eos % (Auto) Baso % (Auto) Lymph # (Auto) Swisher # (Auto) Eos # (Auto) Baso # (Auto) Abs Immat Gran (auto) Absolute Neuts (auto) Absolute Nucleated RBC Nucleated RBC % (auto) VBG pH VBG pCO2 VBG pO2 VBG HCO3 VBG O2 Saturation VBG Base Excess Sodium 131 L Potassium 3.8 Chloride 95 L Carbon Dioxide 25 Anion Gap 15 BUN 7 L Creatinine 1.17 Estim Creat Clear Calc 67.9 Estimated GFR > 60 POC Glucose Random Glucose 666 H* Estimat Average Glucose 355 Hemoglobin A1c % 14.0 Calcium 9.2 D Magnesium Total Bilirubin 0.6 Direct Bilirubin AST 127 H ALT 145 H Alkaline Phosphatase 246 H Total Protein 7.7 Albumin 3.5 Triglycerides Cholesterol LDL Cholesterol, Calc HDL Cholesterol Lipase 65 Urine Color Urine Appearance Urine pH Ur Specific [place] Urine Protein Urine Glucose (UA) Urine Ketones Urine Blood Urine Nitrite Ur Leukocyte Esterase Urine RBC Urine WBC Ur Squamous Epith Cells Urine Bacteria Urine Yeast Acetone, Qual Negative COVID-19 ([facility]ISE) COVID-19 Clin Com Hepatitis A IgM Ab Hep Bs Antigen Hep Bs Antibody Hep B Core Total Ab Hepatitis C Ab (EIA) 05/11/21 05/11/21 05/11/21 18:56 19:37 21:32 WBC RBC Hgb Hct MCV MCH MCHC RDW Plt Count MPV Immature Gran % (Auto) Neut % (Auto) Lymph % (Auto) Swisher % (Auto) Eos % (Auto) Baso % (Auto) Lymph # (Auto) Swisher # (Auto) Eos # (Auto) Baso # (Auto) Abs Immat Gran (auto) Absolute Neuts (auto) Absolute Nucleated RBC Nucleated RBC % (auto) VBG pH 7.39 VBG pCO2 45 VBG pO2 37 VBG HCO3 27 H VBG O2 Saturation 61.0 VBG Base Excess 2.2 Sodium Potassium Chloride Carbon Dioxide Anion Gap BUN Creatinine Estim Creat Clear Calc Estimated GFR POC Glucose 445 H* Random Glucose Estimat Average Glucose Hemoglobin A1c % Calcium Magnesium Total Bilirubin Direct Bilirubin AST ALT Alkaline Phosphatase Total Protein Albumin Triglycerides Cholesterol LDL Cholesterol, Calc HDL Cholesterol Lipase Urine Color YELLOW Urine Appearance CLEAR Urine pH 6.0 Ur Specific [place] <= 1.005 Urine Protein NEG Urine Glucose (UA) >=1000 H Urine Ketones NEG Urine Blood NEG Urine Nitrite NEG Ur Leukocyte Esterase NEG Urine RBC 0 Urine WBC 0 Ur Squamous Epith Cells NONE Urine Bacteria NONE Urine Yeast 1+ Acetone, Qual COVID-19 ([facility]ISE) COVID-19 Clin Com Hepatitis A IgM Ab Hep Bs Antigen Hep Bs Antibody Hep B Core Total Ab Hepatitis C Ab (EIA) 05/11/21 05/12/21 05/12/21 22:52 01:05 04:27 WBC 5.8 RBC 4.01 L Hgb 13.5 L Hct 40.4 L MCV 100.7 H MCH 33.7 H MCHC 33.4 RDW 11.4 Plt Count 146 L MPV 12.2 Immature Gran % (Auto) 0.2 Neut % (Auto) 38.5 L Lymph % (Auto) 48.4 H Swisher % (Auto) 9.0 Eos % (Auto) 3.6 Baso % (Auto) 0.3 Lymph # (Auto) 2.8 Swisher # (Auto) 0.5 Eos # (Auto) 0.2 Baso # (Auto) 0.0 Abs Immat Gran (auto) 0.01 Absolute Neuts (auto) 2.2 Absolute Nucleated RBC 0.000 Nucleated RBC % (auto) 0.0 VBG pH VBG pCO2 VBG pO2 VBG HCO3 VBG O2 Saturation VBG Base Excess Sodium Potassium Chloride Carbon Dioxide Anion Gap BUN Creatinine Estim Creat Clear Calc Estimated GFR POC Glucose 308 H 228 H Random Glucose Estimat Average Glucose Hemoglobin A1c % Calcium Magnesium Total Bilirubin Direct Bilirubin AST ALT Alkaline Phosphatase Total Protein Albumin Triglycerides Cholesterol LDL Cholesterol, Calc HDL Cholesterol Lipase Urine Color Urine Appearance Urine pH Ur Specific [place] Urine Protein Urine Glucose (UA) Urine Ketones Urine Blood Urine Nitrite Ur Leukocyte Esterase Urine RBC Urine WBC Ur Squamous Epith Cells Urine Bacteria Urine Yeast Acetone, Qual COVID-19 ([facility]ISE) COVID-19 Clin Com Hepatitis A IgM Ab Hep Bs Antigen Hep Bs Antibody Hep B Core Total Ab Hepatitis C Ab (EIA) 05/12/21 05/12/21 05/12/21 04:27 04:27 04:27 WBC RBC Hgb Hct MCV MCH MCHC RDW Plt Count MPV Immature Gran % (Auto) Neut % (Auto) Lymph % (Auto) Swisher % (Auto) Eos % (Auto) Baso % (Auto) Lymph # (Auto) Swisher # (Auto) Eos # (Auto) Baso # (Auto) Abs Immat Gran (auto) Absolute Neuts (auto) Absolute Nucleated RBC Nucleated RBC % (auto) VBG pH VBG pCO2 VBG pO2 VBG HCO3 VBG O2 Saturation VBG Base Excess Sodium 137 Potassium 2.9 L D Chloride 104 Carbon Dioxide 25 Anion Gap 11 L BUN 5 L Creatinine 0.68 Estim Creat Clear Calc 116.9 Estimated GFR > 60 POC Glucose Random Glucose 229 H D Estimat Average Glucose Hemoglobin A1c % Calcium 8.1 L D Magnesium 1.6 Total Bilirubin 0.6 Cancelled Direct Bilirubin 0.3 Cancelled AST 122 H Cancelled ALT 126 H Cancelled Alkaline Phosphatase 206 H Cancelled Total Protein 6.4 L Cancelled Albumin 3.0 L Cancelled Triglycerides 194 Cancelled Cholesterol 147 D Cancelled LDL Cholesterol, Calc 88 Cancelled HDL Cholesterol 21 D Cancelled Lipase Urine Color Urine Appearance Urine pH Ur Specific [place] Urine Protein Urine Glucose (UA) Urine Ketones Urine Blood Urine Nitrite Ur Leukocyte Esterase Urine RBC Urine WBC Ur Squamous Epith Cells Urine Bacteria Urine Yeast Acetone, Qual COVID-19 (ANNELISE) COVID-19 Clin Com Hepatitis A IgM Ab Nonreactive Hep Bs Antigen Negative Hep Bs Antibody NONREACTIVE Hep B Core Total Ab Nonreactive Hepatitis C Ab (EIA) Nonreactive 05/12/21 05/12/21 05/12/21 07:04 08:30 13:11 WBC RBC Hgb Hct MCV MCH MCHC RDW Plt Count MPV Immature Gran % (Auto) Neut % (Auto) Lymph % (Auto) Swisher % (Auto) Eos % (Auto) Baso % (Auto) Lymph # (Auto) Swisher # (Auto) Eos # (Auto) Baso # (Auto) Abs Immat Gran (auto) Absolute Neuts (auto) Absolute Nucleated RBC Nucleated RBC % (auto) VBG pH VBG pCO2 VBG pO2 VBG HCO3 VBG O2 Saturation VBG Base Excess Sodium Potassium Chloride Carbon Dioxide Anion Gap BUN Creatinine Estim Creat Clear Calc Estimated GFR POC Glucose 206 H 199 H Random Glucose Estimat Average Glucose Hemoglobin A1c % Calcium Magnesium Total Bilirubin Direct Bilirubin AST ALT Alkaline Phosphatase Total Protein Albumin Triglycerides Cholesterol LDL Cholesterol, Calc HDL Cholesterol Lipase Urine Color Urine Appearance Urine pH Ur Specific [place] Urine Protein Urine Glucose (UA) Urine Ketones Urine Blood Urine Nitrite Ur Leukocyte Esterase Urine RBC Urine WBC Ur Squamous Epith Cells Urine Bacteria Urine Yeast Acetone, Qual COVID-19 (ANNELISE) Negative COVID-19 Clin Com See Note Hepatitis A IgM Ab Hep Bs Antigen Hep Bs Antibody Hep B Core Total Ab Hepatitis C Ab (EIA) 05/12/21 13:22 WBC RBC Hgb Hct MCV MCH MCHC RDW Plt Count MPV Immature Gran % (Auto) Neut % (Auto) Lymph % (Auto) Swisher % (Auto) Eos % (Auto) Baso % (Auto) Lymph # (Auto) Swisher # (Auto) Eos # (Auto) Baso # (Auto) Abs Immat Gran (auto) Absolute Neuts (auto) Absolute Nucleated RBC Nucleated RBC % (auto) VBG pH VBG pCO2 VBG pO2 VBG HCO3 VBG O2 Saturation VBG Base Excess Sodium 137 Potassium 3.7 D Chloride 104 Carbon Dioxide 25 Anion Gap 12 BUN 4 L Creatinine 0.70 Estim Creat Clear Calc 113.6 Estimated GFR > 60 POC Glucose Random Glucose 218 H Estimat Average Glucose Hemoglobin A1c % Calcium 8.8 D Magnesium Total Bilirubin 0.8 Direct Bilirubin 0.3 AST 190 H ALT 180 H Alkaline Phosphatase 209 H Total Protein 7.4 Albumin 3.4 L Triglycerides Cholesterol LDL Cholesterol, Calc HDL Cholesterol Lipase Urine Color Urine Appearance Urine pH Ur Specific [place] Urine Protein Urine Glucose (UA) Urine Ketones Urine Blood Urine Nitrite Ur Leukocyte Esterase Urine RBC Urine WBC Ur Squamous Epith Cells Urine Bacteria Urine Yeast Acetone, Qual COVID-19 ([facility]ISE) COVID-19 Clin Com Hepatitis A IgM Ab Hep Bs Antigen Hep Bs Antibody Hep B Core Total Ab Hepatitis C Ab (EIA) Discharge Plan Discharge Anticipated Discharge Date/Time: 05/12/21 14:42 Patient Disposition: Home, Self-Care Discharge Diagnosis: new onset diabetes mellitus Referrals: Gavin Khan MD [Physician] - 1 Week (Call for new patient appointment, new onset diabetes ) Discharge Medications: New metformin 500 mg tablet 500 mg PO DAILY Qty: 30 0RF Lantus Solostar U-100 Insulin 100 unit/mL (3 mL) insulin pen 20 unit subcut QPM Qty: 3 0RF (DME) pen needle, diabetic 32 gauge x 1/4 needle See Rx Instructions .Route Qty: 100 0RF Rx Instructions: As directed (DME) blood-glucose meter [FreeStyle Cromona Lite] Kit See Rx Instructions .Route Qty: 1 0RF Rx Instructions: As directed alcohol swabs [Alcohol Prep Pads] Pads, Medicated 1 pad topical QIDACHS Qty: 200 0RF (DME) lancets 32 gauge misc See Rx Instructions .Route Qty: 100 0RF Rx Instructions: As directed (DME) FreeStyle Lite Strips Strip See Rx Instructions .ROUTE .MEDSUPPLY Qty: 10 0RF Rx Instructions: As directed Continued lisinopril 10 mg tablet 1 tab PO DAILY 0RF Discharge Orders: Discharge Order (Routine); Ordered 05/12/21 Ordered By: Rosario Kumar Diet: diabetic diet Activity on Discharge: As tolerated Stand Alone Forms: Patient Portal Discharge page Other Ambulatory Orders: Basic Metabolic Panel (Routine) Timeframe: 20210514 Facility: [facility] - Location: Laboratory Ordered By: Rosario Kumar Liver Panel (Routine) Timeframe: 20210514 Facility: [facility] - Location: Laboratory Ordered By: Rosario Kumar Care Plan Goals: management of diabetes mellitus Health Concerns: new onset diabetes mellitus Plan of Treatment: continue all medications as prescribed Follow up with hand engraver You have been started on new medication for you new onset diabetes mellitus. Metformin 500 mg daily and Lantus 20 units bedtime. You have been prescribed a meter to check your blood sugar, please do this 4 times a day before meals and keep a diary and bring with you to your hand engraver appointment. Assessment: see discharge summary
== END 2021-05-12 15:07 | disposition home or self-care (01) | DRG 639 ==
LOC: HO.ED 23:17 → HO.EDOVER 23:20
PROVIDERS: Family Medicine; Admitting Provider Hospitalist; Emergency Provider Emergency Medicine; PCP Internal Medicine; Visit Provider Nurse Practitioner Acute Care
DX: E11.65 Type 2 diabetes mellitus with hyperglycemia (principal); I10 Essential (primary) hypertension; N40.0 Benign prostatic hyperplasia without lower urinary tract symptoms; K76.0 Fatty (change of) liver, not elsewhere classified; Z20.822 Contact with and (suspected) exposure to COVID-19; Z79.899 Other long term (current) drug therapy
CPT/HCPCS: 36415; 71046; 76705; 80048; 80053; 80061; 80076; 81001; 82009; 82803; 82947; 83036; 83690; 83735; 85025; 86704; 86706; 86709; 86803; 87340; 87635; 93005; 96360; 96361; 99285; J1650

== ENCOUNTER → 2021-05-14 13:01 | Outpatient (BNVA) | payer OTHER, SELFPAY | PROVIDERS: PCP Internal Medicine; Visit Provider Urology | DX: N20.0 Calculus of kidney (principal); N32.0 Bladder-neck obstruction; R33.9 Retention of urine, unspecified | CPT/HCPCS: 51798; 99212 ==

== ENCOUNTER 2021-09-16 10:53 | Outpatient (REF) | payer OTHER, SELFPAY ==
[2021-09-16 11:53] LABS: Estimated Average Glucose 97 mg/dL
[2021-09-16 11:58] LABS: Alanine Aminotransferase 51 U/L (0-40); Albumin Level 4.2 g/dL (3.5-5.0); Alkaline Phosphatase 153 U/L (39-117); Anion Gap 13 (12-20); Aspartate Amino Transferase 44 U/L (5-37); Bilirubin Total 0.5 mg/dL (0.0-1.0); Blood Urea Nitrogen 10 mg/dL (9-16); Calcium 9.4 mg/dL (8.4-10.2); Carbon Dioxide 24 mmol/L (22-29); Chloride 108 mmol/L (96-108); Cholesterol 130 mg/dL; Estimated Glomerular Filt Rate > 60; Glucose Random 98 mg/dL (60-115); HDL Cholesterol 47 mg/dL; LDL Cholesterol Calculated 70 mg/dl; Potassium 4.1 mmol/L (3.3-5.1); Sodium 141 mmol/L (135-145); Total Protein 8.4 g/dL (6.5-8.0); Triglycerides 66 mg/dL
== END 2021-09-16 10:54 | disposition home or self-care (01) ==
LOC: HO.LAB 10:53
PROVIDERS: PCP Internal Medicine; Visit Provider Internal Medicine
DX: E11.9 Type 2 diabetes mellitus without complications (principal); E78.2 Mixed hyperlipidemia; R74.01 Elevation of levels of liver transaminase levels; I10 Essential (primary) hypertension
CPT/HCPCS: 36415; 80053; 80061; 83036

== ENCOUNTER 2021-09-17 13:51 | Outpatient (REF) | payer OTHER, SELFPAY ==
[2021-09-17 14:21] LABS: Creatinine Urine 102.72 mg/dL; Microalbum/Creatinine Ratio Ur 17.5 ug/mg cr
== END 2021-09-17 13:52 | disposition home or self-care (01) ==
LOC: HO.LNP 13:51
PROVIDERS: Visit Provider Internal Medicine
DX: E11.9 Type 2 diabetes mellitus without complications (principal); E78.2 Mixed hyperlipidemia; I10 Essential (primary) hypertension; R74.01 Elevation of levels of liver transaminase levels
CPT/HCPCS: 82043

== ENCOUNTER → 2021-11-16 12:06 | Outpatient (BNVA) | payer OTHER, SELFPAY | PROVIDERS: PCP Internal Medicine; Visit Provider Urology | DX: N32.0 Bladder-neck obstruction (principal); N20.0 Calculus of kidney | CPT/HCPCS: Q3014 ==

== ENCOUNTER 2021-12-23 11:13 | Outpatient (REF) | payer OTHER, SELFPAY ==
[2021-12-23 12:47] LABS: Estimated Average Glucose 108 mg/dL; Hemoglobin A1c % 5.4 %
[2021-12-23 13:12] LABS: Alanine Aminotransferase 88 U/L (0-40); Albumin Level 4.1 g/dL (3.5-5.0); Alkaline Phosphatase 133 U/L (39-117); Anion Gap 17 (12-20); Aspartate Amino Transferase 55 U/L (5-37); Bilirubin Total 0.4 mg/dL (0.0-1.0); Blood Urea Nitrogen 7 mg/dL (9-16); Calcium 9.5 mg/dL (8.4-10.2); Carbon Dioxide 25 mmol/L (22-29); Chloride 105 mmol/L (96-108); Estimated Glomerular Filt Rate > 60; Glucose Random 91 mg/dL (60-115); Potassium 3.7 mmol/L (3.3-5.1); Sodium 143 mmol/L (135-145)
[2021-12-24 04:55] LABS: HBS Num1 0.75 mIU/mL (0-7.99); HBc Num1 0.07 S/CO (0.00-0.79); HBsAGNum1 0.22 S/CO (0.00-0.99); Hepatitis A Antibody IgM 0.42 Index (0-0.79); Hepatitis B Core Antibody Nonreactive (Nonreactive); Hepatitis B Surface Antigen Negative (Negative); ~HepC Num1 0.08 S/CO (0.00-0.79); ~Hepatitis A Antibody IgM Nonreactive (Nonreactive); ~Hepatitis B Surface Antibody NONREACTIVE (Nonreactive); ~Hepatitis C Antibody Nonreactive (Nonreactive)
== END 2021-12-23 11:14 | disposition home or self-care (01) ==
LOC: HO.LAB 11:13
PROVIDERS: Visit Provider Internal Medicine
DX: E11.9 Type 2 diabetes mellitus without complications (principal); E78.2 Mixed hyperlipidemia; I10 Essential (primary) hypertension; R74.01 Elevation of levels of liver transaminase levels
CPT/HCPCS: 36415; 80053; 83036; 86704; 86706; 86709; 86803; 87340

== ENCOUNTER 2022-04-27 15:48 | Outpatient (REF) | payer OTHER, SELFPAY ==
--- NOTE | ~2022-04-27 | US_ITS ---
EXAMINATION: US RETROPERITONEAL LIMITED (RENAL ONLY) CLINICAL INFORMATION: Calculus of kidney. COMPARISON: Ultrasound abdomen limited 05/11/2021. Renal ultrasound 04/23/2020. CT abdomen and pelvis 03/22/2020. TECHNIQUE: Real-time imaging of the kidneys. FINDINGS: RIGHT KIDNEY: 12.0 x 6.2 x 6.1 cm (SAG x AP x TRV). The kidney is normal in size, contour, and echogenicity. Renal cortical thickness is normal. No renal calculi or hydronephrosis. At the interpolar aspect, a 5 mm benign, simple cyst is seen. At the lower pole, 8 mm and 4 mm benign, simple cysts are seen. LEFT KIDNEY: 12.4 x 5.7 x 5.4 cm (SAG x AP x TRV). The kidney is normal in size, contour, and echogenicity. Renal cortical thickness is normal. No calculi or focal parenchymal lesions. No hydronephrosis. US/US renal BI IMPRESSION: Benign, simple right renal cysts are seen, as detailed. These require no imaging follow-up. The examination is otherwise unremarkable.
== END 2022-04-27 15:49 | disposition home or self-care (01) ==
LOC: HO.US 15:48
PROVIDERS: PCP Internal Medicine; Visit Provider Urology
DX: N20.0 Calculus of kidney (principal)
CPT/HCPCS: 76775

== ENCOUNTER 2022-05-13 09:34 | Outpatient (REF) | payer OTHER, SELFPAY ==
--- NOTE | ~2022-05-13 | US_ITS ---
EXAMINATION: US COMPLETE ABDOMEN WITH LIVER ELASTOGRAPHY CLINICAL INFORMATION: Elevated liver enzymes. COMPARISON: None available. TECHNIQUE: Real-time imaging of the abdominal viscera. Noninvasive ultrasound liver fibrosis assessment is performed using Blaze ElastPQ point quantification shear wave elastography (2D-SWE) with a C5-2 MHz transducer. Multiple elastography samples are obtained. FINDINGS: PANCREAS: The visualized pancreatic head and body are normal in appearance. The remainder of the pancreas is obscured from visualization by the overlying bowel gas. ABDOMINAL AORTA: The proximal, middle, and distal aortic segments are normal in caliber. INFERIOR VENA CAVA: Visualized portions are normal. LIVER: The liver demonstrates normal size, contour and increased echogenicity. No focal lesion or intrahepatic biliary duct dilatation. The right lobe measures 19.5 cm in length. The left lobe measures 10.9 cm in length. Portal flow is hepatopedal. Shear wave liver elastography median stiffness is 2.33 m/s (reference: normal median stiffness is 1.3 m/s or less). IQR/median stiffness to assess sampling precision is 0.15 (reference: good quality data set is IQR/median stiffness of 0.15 or less). GALLBLADDER: Normal. The gallbladder is physiologically distended without evidence of stones, sludge, polyps, wall thickening or pericholecystic fluid. COMMON BILE DUCT: Normal in caliber measuring 0.3 cm in diameter. RIGHT KIDNEY: Normal. No hydronephrosis. No renal calculi or focal parenchymal lesions. The kidney measures 12.8 cm in maximum dimension. LEFT KIDNEY: Normal. No hydronephrosis. No renal calculi or focal parenchymal lesions. The kidney measures 12.0 cm in maximum dimension. SPLEEN: Normal. The spleen measures 10.3 cm in maximum dimension. FREE FLUID: None. US/US abdomen comp w elastography IMPRESSION: 1. Hepatic steatosis. No focal lesion seen. 2. There is mild prominent left renal perinephric fat. 3. Liver elastography: Median liver stiffness measures 2.33 corresponds to cALCD (ruled in). REFERENCE: Society of Radiologists in Ultrasound Liver Stiffness Thresholds (2019): LIVER STIFFNESS THRESHOLDS: *Liver Stiffness equal or less than 1.3 m/s: High probability of being normal. *Liver Stiffness less than 1.7 m/s: In the absence of other known clinical signs, rules out compensated advanced chronic liver disease. *Liver Stiffness 1.7-2.1 m/s: Suggestive of compensated advanced chronic liver disease but need further test for confirmation. *Liver Stiffness over 2.1 m/s: Rules in compensated advanced chronic liver disease. *Liver Stiffness over 2.4 m/s: Suggestive of clinically significant portal hypertension. QUALITY OF DATA SET: *IQR/Median value equal or less than 0.15 implies a quality data set. *IQR/Median value over 0.15 implies a poor quality data set. SIGNIFICANT CHANGE FROM PRIOR EXAM: Significant change if liver stiffness measurement is 10% or greater from prior exam. OTHER CONSIDERATIONS: The stage of liver fibrosis may be overestimated in the setting of acute hepatitis, liver inflammation, elevated liver function tests, hepatic vascular congestion, obstructive cholestasis, non-fasting state, and infiltrative diseases such as amyloidosis and lymphoma. In some patients with NAFLD, the liver stiffness thresholds for compensated advanced chronic liver disease may be lower. In causes other than viral hepatitis and NAFLD, liver stiffness thresholds are not well established.
== END 2022-05-13 09:35 | disposition home or self-care (01) ==
LOC: HO.US 09:34
PROVIDERS: PCP Internal Medicine; Visit Provider Internal Medicine
DX: R74.01 Elevation of levels of liver transaminase levels (principal)
CPT/HCPCS: 76705; 76981

== ENCOUNTER → 2022-06-20 11:38 | Outpatient (BNVA) | payer OTHER, SELFPAY | PROVIDERS: PCP Internal Medicine; Visit Provider Physician Assistant | DX: Z12.11 Encounter for screening for malignant neoplasm of colon (principal); K76.0 Fatty (change of) liver, not elsewhere classified; R06.02 Shortness of breath; R01.1 Cardiac murmur, unspecified | CPT/HCPCS: 99202 ==

== ENCOUNTER → 2022-08-01 12:08 | Outpatient (BNVA) | payer OTHER, SELFPAY | PROVIDERS: PCP Internal Medicine; Visit Provider Physician Assistant | DX: D64.9 Anemia, unspecified (principal); R01.1 Cardiac murmur, unspecified; R74.8 Abnormal levels of other serum enzymes | CPT/HCPCS: 99212 ==

== ENCOUNTER 2022-09-07 10:22 | Outpatient (AMB) | payer OTHER, SELFPAY ==
--- NOTE | 2022-09-07 10:29 | MHC.OFFVIS ---
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 Name: Teresa [phone] Accompanied by: Self / Same As Patient Allergies No Known Allergies [No Known Allergies*] Allergy (Verified 09/07/22 10:34) Medication List - Last Reconciled 09/07/22 by Riki Bear MD alcohol swabs (Alcohol Prep Pads) 1 pad topical QIDACHS aspirin 81 mg PO DAILY bisacodyl (Dulcolax (bisacodyl)) 10 mg (2 x 5 mg) PO ONCE 1 day blood sugar diagnostic (FreeStyle Lite Strips) As directed blood-glucose meter (FreeStyle [place] Lite kit) As directed insulin glargine (Lantus Solostar U-100 Insulin) 20 units (0.2 mL) subcut QPM lancets As directed lisinopril-hydrochlorothiazide 20-12.5 mg 1 tab PO DAILY metformin 500 mg PO DAILY metformin 1,000 mg PO BID pen needle, diabetic As directed pen needle, diabetic (BD Ultra-Fine Sue Pen Needle) As directed polyethylene glycol 3350 (Miralax) 238 grams PO ONCE PRN 1 day rosuvastatin 10 mg PO BEDTIME terazosin 5 mg PO BEDTIME 90 days HPI HPI Comments History of Present Illness Details Brandon is here for consultation regarding question of cardiac murmur. He also needs preoperative risk stratification for a colonoscopy. Patient denies any history of coronary disease, myocardial infarction or cardiomyopathy. Random sharp chest pains in a nonexertional fashion. He also gets frequently short of breath. Multiple cardiovascular risk factors including type 2 diabetes, hypertension, dyslipidemia. He seems to be on appropriate medications for the same. He was thought to have a cardiac murmur and based on his overall comorbidities he has been referred to us for evaluation. [facility] Medical History (Updated 09/07/22 @ 11:02 by Riki Bear MD) Fatty infiltration of liver HTN (hypertension) Hyperlipidemia, unspecified Type 2 diabetes mellitus with unspecified complications Surgical History (Updated 07/12/23 @ 10:37 by Ana Chavez) History of surgery on lower extremity Family History (Updated 09/07/22 @ 10:36 by Ana Chavez) Maternal Grandmother Heart problem Lung cancer Mother Diabetes Father Stroke (cerebrum) Social History Household Members: Spouse Housing: House Do you presently have visiting nurse or other home services: No Patient Tobacco Use Status: Never used Tobacco service: No Current occupational status: unemployed and disabled Review of Systems Const Denies chills, Denies daytime sleepiness, Denies fatigue, Denies fever(s), Denies frequent falls, Denies night sweats, Denies snoring, Denies weakness, Denies weight gain and Denies weight loss Eyes Denies loss of vision ENT Denies dizziness and Denies hearing loss Card Denies chest pain, Denies chest pain with activity, Denies syncope, Denies rapid heart rate, Denies edema, Denies claudication, Denies leg edema, Denies lightheadedness, Denies palpitations, Denies dyspnea, Denies dyspnea on exertion and Denies orthopnea Resp Denies cough, Denies excessive phlegm production, Denies dyspnea, Denies dyspnea on exertion, Denies snoring and Denies wheezing GI Denies abdominal pain, Denies hematochezia, Denies change in bowel habits, Denies change in stool character, Denies heartburn, Denies nausea and Denies vomiting Denies hematuria, Denies dysuria and Denies urinary frequency Musc Denies arthralgias, Denies muscle weakness, Denies numbness and Denies tingling Skin/Breast Denies nail changes and Denies rash Neuro Denies Abnormal speech present, Denies dizziness, Denies syncope, Denies frequent falls, Denies loss of vision, Denies memory loss, Denies numbness, Denies tingling and Denies weakness Psych Denies depression and Denies memory loss Endo Denies fatigue and Denies palpitations Aller/Immun Denies wheezing Physical Exam Vital Signs: Last Vital Signs Pulse 85 09/07/22 10:30 BP 128/86 09/07/22 10:30 BMI result Body Mass Index 32.2 Const General: comfortable and no acute distress Orientation/consciousness: patient oriented x3 HEENT Other: Unremarkable Head: Yes normal to inspection Neck Neck: Yes normal visual inspection Chest Chest palpation & inspection: normal inspection of the chest Resp Auscultation: clear to auscultation bilaterally Cardio Other: 3/6 systolic murmur heard all over the precordium with absent S2. Palpation: normal PMI GI Palpation (GI): Soft to palpation Back/Spine/Pelvis Other: unremarkable Skin General skin exam: no rashes or lesions noted Neuro General: patient oriented x3 Speech: No Abnormal speech present Extrem General: Yes normal to inspection Psych Mental Status: mental status grossly normal Office Procedures EKG Details: EKG with sinus rhythm at 85/Min; no significant ST-T changes and otherwise [place]remark[place] [id number], Complete Assessment & Plan Assessment & Plan (1) Preoperative cardiovascular examination: Code(s): Z01.810 - Encounter for preprocedural cardiovascular examination (2) SOB (shortness of breath): Code(s): R06.02 - Shortness of breath (3) Type 2 diabetes mellitus with unspecified complications: Code(s): E11.8 - Type 2 diabetes mellitus with unspecified complications (4) HTN (hypertension): Code(s): I10 - Essential (primary) hypertension (5) Hyperlipidemia, unspecified: Code(s): E78.5 - Hyperlipidemia, unspecified Plan Overall, murmur of probably aortic stenosis; could be bicuspid valve considering his age. Less likely mitral regurgitation but also possible. Doubt other valvular involvement as primary. Unknown if he has any cardiomyopathy. Multiple risk factors for ischemic heart disease. We will start with an echocardiogram. This is to assess the aortic valve and overall, any structural findings. Based on this, probably needs further workup but can decide once the echocardiogram is reviewed. Hold off colonoscopy till cardiac testing is completed and reviewed. Orders: Orders CA echo transthoracic complete Today I35.0 - Nonrheumatic aortic (valve) stenosis Coding Level of Care Code New Pt Level 4 (15826) Diagnoses Preoperative cardiovascular examination Z01.810 SOB (shortness of breath) R06.02 Type 2 diabetes mellitus with unspecified complications E11.8 HTN (hypertension) I10 Hyperlipidemia, unspecified E78.5 CPT Codes EKG - CPT: 54640-[id number], Complete ([id number])
[2022-09-07 10:30] VITALS: BP 128/86; PULSE 85; BMI 32.2
== END 2022-09-07 10:55 | disposition home or self-care (01) ==
PROVIDERS: PCP Internal Medicine; Visit Provider Internal Medicine
DX: Z01.810 Encounter for preprocedural cardiovascular examination (principal); R06.02 Shortness of breath; E11.8 Type 2 diabetes mellitus with unspecified complications; I10 Essential (primary) hypertension; E78.5 Hyperlipidemia, unspecified
CPT/HCPCS: 93010; 99204

== ENCOUNTER → 2022-09-07 10:22 | Outpatient (BNVA) | payer OTHER, SELFPAY | PROVIDERS: PCP Internal Medicine; Visit Provider Internal Medicine | DX: Z01.810 Encounter for preprocedural cardiovascular examination (principal); R06.02 Shortness of breath; I10 Essential (primary) hypertension; E78.5 Hyperlipidemia, unspecified; E11.8 Type 2 diabetes mellitus with unspecified complications | CPT/HCPCS: 93005; 99202 ==

== ENCOUNTER → 2022-11-08 14:21 | Outpatient (REF) | payer OTHER, SELFPAY ==
--- NOTE | 2022-11-08 14:23 | CA_ITS ---
Transthoracic Echocardiogram Patient (Last, First, Middle): Brandon Gamez D Gender: Male Date of : 1960 Age: 62 Procedure Date: 11/08/2022 Procedure Type: Transthoracic Echocardiogram Location: OP Height: 170.18 cm Weight: 95.26 kg BSA: 2.06 m2 Heart Rate: bpm BP: 140 / 98 mmHg Analysis Director: TO Referring MD: Riki Bear MD Symptoms: I35.0 - Nonrheumatic aortic (valve) stenosis Study Quality: Fair Conclusions: - The left ventricular systolic function is normal. The calculated ejection fraction is 57% by biplane method. - There is moderate aortic valve stenosis. Findings Left Ventricle Normal left ventricular cavity size. The left ventricular systolic function is normal. The calculated ejection fraction is 57% by biplane method. There is no evidence of regional wall motion abnormalities. Evidence suggests grade I (mild) diastolic dysfunction. There is moderate septal asymmetric hypertrophy. Right Ventricle Moderately increased right ventricular cavity size. There is normal right ventricular systolic function. Atria Both atria are normal in size. Aortic Valve There is moderate calcification of the aortic valve. There is moderate aortic valve stenosis. The peak aortic velocity is 3.12 m/s with a calculated peak gradient of 39 mmHg. The mean gradient is 24 mmHg. There is no aortic valve regurgitation. Dimensionless index 0.3. Mitral Valve There is mild mitral annular calcification. There is no mitral valve regurgitation. There is no mitral valve stenosis. Pulmonic Valve The pulmonic valve is likely normal. Tricuspid Valve There is trace tricuspid valve regurgitation. There is no evidence of pulmonary hypertension. Great Vessels The asc aorta is normal in size. Venous The inferior vena cava was not well visualized. The inferior vena cava is normal in size. Pericardium/Pleural There is no evidence of pericardial effusion. Prior Study Comparison No prior study available for comparison. Reporting delayed due to technical reasons. Measurements 2D Linear Measurements IVSd: 1.40 0.6-0.9/0.6-1.0 cm LVIDd: 4.70 3.9-5.3/4.2-5.9 cm LVIDd Index: 2.28 2.4-3.2/2.2-3.1 cm/m2 LVIDs: 3.30 2.0-3.6 cm LVPWd: 0.80 0.7-1.1 cm LA Diam: 3.80 2.7-3.8/3.0-4.0 cm LAIDs Index: 1.84 1.5-2.3 cm/m2 LV Mass: 233.67 67-162/88-224 g LV Mass Index: 113.43 43-95/49-115 g/m2 LVOT Diam: 2.00 3.0+(-)1.3 cm 2D Systolic Function EF 4C: 55.30 >55% EF 2C: 58.40 >55% EF BiP: 56.60 >55% Mitral Valve MV VTI: 0.21 MV Pk Dann: 0.93 MV Mn Dann: 0.67 MV Pk Grad: 3.00 MV Mn Grad: 2.00 MV Pk E: 0.57 MV PK A: 0.79 MV Decel Time: 160.00 E/A: 0.70 E'Lateral: 5.11 E'Medial: 3.70 E/E' Med: 15.50 E/E' Lat: 11.20 PHT: 47.00 MVA PHT: 4.68 MVA Continuity: 2.95 Decel [place]: 3.59 Aortic Valve AoV Pk Dann: 3.12 AoV Mn Dann: 2.35 AoV VTI: 0.66 AoV Pk Grad: 39.00 Aov Mn Grad: 24.00 MAGAN Cont.VTI: 0.95 LVOT LVOT Pk Dann: 0.93 LVOT Mn Dann: 0.65 LVOT VTI: 0.20 LVOT Pk Grad: 3.00 LVOT Mn Grad: 2.00 LVOT Diam: 2.00 LVOT Area: 3.14 Diastolic Function MV Pk E: 0.57 MV Pk A: 0.79 E/A: 0.70 E'Medial: 3.70 E/E' Med: 15.50 E' Laterial: 5.11 E/E' Lat: 11.20 Right Ventricle TAPSE (mm): 22.90 TVS' Dann: 12.30 Tricuspid Valve RA Press: 3.00 Great Vessels Aorta Sinus of Valsalva: 3.50 2.0-3.[address] [place]: 2.70 1.7-3.4 cm Ao Asc: 3.90 2.1-3.4 cm Ao Arch: 2.80 Updated in Other Vendor System with Status of Final Riki Bear MD electronically signed on 11/12/2022 11:48:15 AM with status of Final
== END ==
LOC: HO.CARD 14:21
PROVIDERS: PCP Internal Medicine; Visit Provider Internal Medicine
DX: I35.0 Nonrheumatic aortic (valve) stenosis (principal)
CPT/HCPCS: 93306

== ENCOUNTER → 2022-11-08 14:23 | Outpatient (BNV) | payer OTHER, SELFPAY | PROVIDERS: PCP Internal Medicine; Visit Provider Internal Medicine | DX: I35.0 Nonrheumatic aortic (valve) stenosis (principal) | CPT/HCPCS: 93306 ==

== ENCOUNTER 2022-11-18 09:50 | Outpatient (REF) | payer OTHER, SELFPAY ==
[2022-11-18 10:18] LABS: MANUAL DIFF FLAG NO
[2022-11-18 10:29] LABS: Basophils Percent Auto 0.6 % (0-2); Eosinophils Absolute Auto 0.5 X10*3/uL (0.0-0.4); Eosinophils Percent Auto 6.6 % (0-4); Hematocrit 47.7 % (42.0-52.0); Hemoglobin 15.7 g/dl (14.0-18.0); Imm Gran Abs Auto 0.01 X10*3/uL (0.00-0.03); Imm Gran Pct Auto 0.1 % (0.0-0.4); Lymphocytes Absolute Auto 2.7 X10*3/uL (1.2-4.9); Lymphocytes Percent Auto 38.8 % (20-40); Mean Corpuscular HGB Conc 32.9 g/dl (31.0-36.0); Mean Corpuscular Hemoglobin 32.9 pg (27.0-33.0); Mean Platelet Volume 10.6 fL (9.4-12.4); Monocytes Absolute Auto 0.8 X10*3/uL (0.1-1.2); Monocytes Percent Auto 11.5 % (2-11); Neutrophils Percent Auto 42.4 % (45-73); Platelet Count 231 X10*3/uL (160-400); Red Blood Count 4.77 X10*6/uL (4.60-5.80)
[2022-11-18 10:41] LABS: Estimated Average Glucose 108 mg/dL; Hemoglobin A1c % 5.4 % (<6.0)
[2022-11-18 11:09] LABS: Alanine Aminotransferase 73 U/L (0-40); Alkaline Phosphatase 119 U/L (39-117); Anion Gap 12 (12-20); Aspartate Amino Transferase 62 U/L (5-37); Bilirubin Total 0.5 mg/dL (0.0-1.0); Blood Urea Nitrogen 11 mg/dL (9-16); Calcium 9.3 mg/dL (8.4-10.2); Carbon Dioxide 27 mmol/L (22-29); Chloride 105 mmol/L (96-108); Cholesterol 116 mg/dL (<200); Estimated Glomerular Filt Rate > 60; Glucose Random 119 mg/dL (60-115); HDL Cholesterol 33 mg/dL (>40); LDL Cholesterol Calculated 65 mg/dL (<100); Potassium 3.3 mmol/L (3.3-5.1); Sodium 141 mmol/L (135-145); Total Protein 8.3 g/dL (6.5-8.0); Triglycerides 93 mg/dL (<150)
[2022-11-18 11:27] LABS: Thyroid Stimulating Hormone 0.94 uIU/mL (0.32-4.0)
[2022-11-18 12:01] LABS: Prostate Specific Antigen 4.22 ng/mL (<0.05-4.0); Vitamin B12 358 pg/mL (200-900)
== END 2022-11-18 09:51 | disposition home or self-care (01) ==
LOC: HO.LAB 09:50
PROVIDERS: PCP Internal Medicine; Visit Provider Internal Medicine
DX: Z00.00 Encounter for general adult medical examination without abnormal findings (principal); E11.9 Type 2 diabetes mellitus without complications; E78.2 Mixed hyperlipidemia; I10 Essential (primary) hypertension; K76.0 Fatty (change of) liver, not elsewhere classified; N40.0 Benign prostatic hyperplasia without lower urinary tract symptoms; Z12.5 Encounter for screening for malignant neoplasm of prostate
CPT/HCPCS: 36415; 80053; 80061; 82607; 83036; 84153; 84443; 85025

== ENCOUNTER 2022-11-21 14:05 | Outpatient (REF) | payer OTHER, SELFPAY ==
[2022-11-21 14:50] LABS: Creatinine Urine 82.82 mg/dL; Microalbum/Creatinine Ratio Ur 60.3 ug/mg cr (<30)
== END 2022-11-21 14:06 | disposition home or self-care (01) ==
LOC: HO.LNP 14:05
PROVIDERS: Visit Provider Internal Medicine
DX: Z00.00 Encounter for general adult medical examination without abnormal findings (principal); E11.9 Type 2 diabetes mellitus without complications; E78.2 Mixed hyperlipidemia; I10 Essential (primary) hypertension; N40.0 Benign prostatic hyperplasia without lower urinary tract symptoms; K76.0 Fatty (change of) liver, not elsewhere classified
CPT/HCPCS: 82043; 82570

== ENCOUNTER → 2022-11-24 10:08 | Outpatient (REF) | payer OTHER, SELFPAY ==
--- NOTE | 2022-11-24 10:11 | CA_ITS ---
Acquisition Time: 2022-11-24 10:30:56 Total Exercise Time: 00:05:00 Test Indications: CP, SOB Medications: SEE H Protocol: LUIS ARMANDO Max HR: 139 BPM 89% of Pred: 156 BPM Max BP: 178/078 mmHG Max Work Load: 7.0 METS Exercise stress test with exercise 5 min of Luis Armando protocol achieving 089% MPHR, with moderate SOB, without chest discomfort, no lightheadedness, with frequent isolated PVCs, with normotensive response to exercise, without EKG changes. Breathing returned to normal with rest. Test reviewed with Dr. Darnell. Referred By: Riki Bear Overread By: Jayla Paul
== END ==
LOC: HO.CARD 10:08
PROVIDERS: Visit Provider Internal Medicine
DX: R07.2 Precordial pain (principal); I35.0 Nonrheumatic aortic (valve) stenosis
CPT/HCPCS: 93017

== ENCOUNTER → 2022-11-24 10:11 | Outpatient (BNV) | payer OTHER, SELFPAY | PROVIDERS: Visit Provider Nurse Practitioner | DX: R06.02 Shortness of breath (principal); R07.2 Precordial pain | CPT/HCPCS: 93016; 93018 ==

== ENCOUNTER 2022-12-07 13:28 | Outpatient (AMB) | payer OTHER, SELFPAY ==
--- NOTE | 2022-12-07 13:29 | A.OFFVIS_ITS ---
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 Accompanied by: Self / Same As Patient Allergies No Known Allergies [No Known Allergies*] Allergy (Verified 12/07/22 13:48) Medication List - Last Reconciled 12/07/22 by Riki Bear MD alcohol swabs (Alcohol Prep Pads) 1 pad topical QIDACHS aspirin 81 mg PO DAILY bisacodyl (Dulcolax (bisacodyl)) 10 mg (2 x 5 mg) PO ONCE 1 day blood sugar diagnostic (FreeStyle Lite Strips) As directed blood-glucose meter (FreeStyle [place] Lite kit) As directed insulin glargine (Lantus Solostar U-100 Insulin) 20 units (0.2 mL) subcut QPM lancets As directed lisinopril-hydrochlorothiazide 20-12.5 mg 1 tab PO DAILY metformin 1,000 mg PO BID metoprolol succinate ER mg PO pen needle, diabetic As directed pen needle, diabetic (BD Ultra-Fine Sue Pen Needle) As directed polyethylene glycol 3350 (Miralax) 238 grams PO ONCE PRN 1 day rosuvastatin 10 mg PO BEDTIME terazosin 5 mg PO BEDTIME 90 days HPI HPI Comments History of Present Illness Details Brandon returns for follow-up. Recently seen in consultation regarding heart murmur. He also needed clearance for colonoscopy. Multiple cardiovascular risk factors including diabetes, hypertension, dyslipidemia. He has undergone echocardiogram and stress test. Overall, feels okay. Random chest pains, nonexertional. Some shortness of breath with moderate to severe activity but not all the time. [facility] Medical History (Updated 12/07/22 @ 14:51 by Riki Bear MD) Hyperlipidemia, unspecified Type 2 diabetes mellitus with unspecified complications Fatty infiltration of liver HTN (hypertension) Surgical History History of surgery on lower extremity Family History Maternal Grandmother Heart problem Lung cancer Mother Diabetes Father Stroke (cerebrum) Social History Household Members: Spouse Housing: House Do you presently have visiting nurse or other home services: No Patient Tobacco Use Status: Never used Tobacco service: No Current occupational status: unemployed and disabled Review of Systems Const Denies chills, Denies daytime sleepiness, Denies fatigue, Denies fever(s), Denies frequent falls, Denies night sweats, Denies snoring, Denies weakness, Denies weight gain and Denies weight loss Eyes Denies loss of vision ENT Denies dizziness and Denies hearing loss Card Denies chest pain, Denies chest pain with activity, Denies syncope, Denies rapid heart rate, Denies edema, Denies claudication, Denies leg edema, Denies lightheadedness, Denies palpitations, Denies dyspnea, Denies dyspnea on exertion and Denies orthopnea Resp Denies cough, Denies excessive phlegm production, Denies dyspnea, Denies dyspnea on exertion, Denies snoring and Denies wheezing GI Denies abdominal pain, Denies hematochezia, Denies change in bowel habits, Denies change in stool character, Denies heartburn, Denies nausea and Denies vomiting Denies hematuria, Denies dysuria and Denies urinary frequency Musc Denies arthralgias, Denies muscle weakness, Denies numbness and Denies tingling Skin/Breast Denies nail changes and Denies rash Neuro Denies Abnormal speech present, Denies dizziness, Denies syncope, Denies frequent falls, Denies loss of vision, Denies memory loss, Denies numbness, Denies tingling and Denies weakness Psych Denies depression and Denies memory loss Endo Denies fatigue and Denies palpitations Aller/Immun Denies wheezing Physical Exam Vital Signs: Last Vital Signs Pulse 79 12/07/22 13:36 BP 140/88 H 12/07/22 13:36 BMI result Body Mass Index 32.8 Const General: comfortable and no acute distress Orientation/consciousness: patient oriented x3 HEENT Other: Unremarkable Head: Yes normal to inspection Neck Neck: Yes normal visual inspection Chest Chest palpation & inspection: normal inspection of the chest Resp Auscultation: clear to auscultation bilaterally Cardio Other: 3/6 systolic murmur heard all over the precordium with absent S2. Palpation: normal PMI GI Palpation (GI): Soft to palpation Back/Spine/Pelvis Other: unremarkable Skin General skin exam: no rashes or lesions noted Neuro General: patient oriented x3 Speech: No Abnormal speech present Extrem General: Yes normal to inspection Psych Mental Status: mental status grossly normal Assessment & Plan Assessment & Plan (1) Preoperative cardiovascular examination: Code(s): Z01.810 - Encounter for preprocedural cardiovascular examination (2) Nonrheumatic aortic (valve) stenosis: Code(s): I35.0 - Nonrheumatic aortic (valve) stenosis Plan In the recent echocardiogram, peak gradient across aortic valve was 39 mm Hg with a mean of 24 mm Hg. Dimensionless index 0.3. Calculated LVEF 57%. In the stress test, exercised 5 minutes on Lit protocol. Moderate shortness of breath but no chest discomfort. Reached 7 Mets. No EKG evidence of ischemia. Appropriate blood pressure response. Pathophysiology of aortic stenosis, natural course, symptoms, treatment options discussed in detail. Will need follow-up echocardiogram in about 6 months. Eventually, will need intervention either surgical or transcatheter. With regard to the colonoscopy, if medically necessary may proceed at intermediate risk. Alternatively, if low risk for colon cancer, may also consider Cologuard. Decision per GI. Discussed with significant other who came for appointment. Coding Level of Care Code Est Pt Level 4 (40411) Diagnoses Preoperative cardiovascular examination Z01.810 Nonrheumatic aortic (valve) stenosis I35.0
[2022-12-07 13:36] VITALS: BP 140/88; PULSE 79; BMI 32.8
== END 2022-12-07 14:02 | disposition home or self-care (01) ==
PROVIDERS: PCP Internal Medicine; Visit Provider Internal Medicine
DX: Z01.810 Encounter for preprocedural cardiovascular examination (principal); I35.0 Nonrheumatic aortic (valve) stenosis
CPT/HCPCS: 99214

== ENCOUNTER → 2022-12-07 13:28 | Outpatient (BNVA) | payer OTHER, SELFPAY | PROVIDERS: PCP Internal Medicine; Visit Provider Internal Medicine | DX: Z01.810 Encounter for preprocedural cardiovascular examination (principal); I35.0 Nonrheumatic aortic (valve) stenosis | CPT/HCPCS: 99212 ==

== ENCOUNTER 2022-12-15 13:09 | Outpatient (AMB) | payer OTHER, SELFPAY ==
[2022-12-15 13:33] VITALS: BP 135/87; PULSE 70; BMI 32.9
--- NOTE | 2022-12-15 13:33 | A.OFFVIS_ITS ---
Intake Vital Signs 12/15/22 13:33 Height 5 ft 7 in Weight 210 lb BMI 32.9 BP 135/87 Blood Pressure Location Lt brachial Position Sitting Pulse 70 Intake Visit Reasons: Follow up Cardio Intake Note: Patient follow up after Cardiology Patient cc: acid reflex and constipation. 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 Feels well discuss colonoscopy with cardiology- He has normal bowel pattern, he a good appetite intermittent acid reflux however associates to his lifestyle elevated liver enzymes- he does drink about 18 beers on Monday and 18 on Sundays- sometimes more -he says he is following with PCP he is having blood work in 3 months-room he is aware he has fatty liver, he is cutting back on his alcohol intake. Has reflux when he drinks He has no nausea, vomiting, hematemesis, hematochezia fever or chills. [facility] Medical History (Updated 12/15/22 @ 14:27 by Mindy Collier PA-C) Hyperlipidemia, unspecified Type 2 diabetes mellitus with unspecified complications Fatty infiltration of liver HTN (hypertension) Surgical History History of surgery on lower extremity Family History Maternal Grandmother Heart problem Lung cancer Mother Diabetes Father Stroke (cerebrum) Social History Household Members: Spouse Housing: House Do you presently have visiting nurse or other home services: No Patient Tobacco Use Status: Never used Tobacco service: No Current occupational status: unemployed and disabled Review of Systems Const All systems reviewed & are unremarkable except as noted in HPI and below Card Denies chest pain and Denies dyspnea Resp Denies dyspnea GI Denies abdominal pain, Denies hematochezia, Denies change in stool character, Denies constipation and Reports heartburn (Intermittent ) Physical Exam Vital Signs: Last Vital Signs Pulse 70 12/15/22 13:33 BP 135/87 12/15/22 13:33 BMI result Body Mass Index 32.9 Const General: cooperative, healthy appearing, comfortable and no acute distress Orientation/consciousness: patient oriented x3 Limitations: language barrier Eyes Sclerae: sclerae normal Resp Effort & Inspection: normal respiratory effort and able to speak in complete sentences Auscultation: clear to auscultation bilaterally, no rales, no rhonchi and no wheezes Cardio Rate: regular rate Rhythm: regular rhythm Heart sounds: Murmur heart sound present GI Palpation (GI): Soft to palpation and nontender Auscultation: normal bowel sounds Neuro General: patient oriented x3 Extrem General: Yes full ROM Psych Appearance: grossly normal and well kempt Mental Status: mental status grossly normal Speech and movement: Normal speech and movement present and Clear speech present Affect: normal affect Attitude: cooperative Thought process: Normal thought process present Thought content: Normal thought content present Insight: Good insight present (Psych) Judgement: Good judgement present (Psych) Assessment & Plan Assessment & Plan (1) Screen for colon cancer: Comment: 12/07/22- Dr. Bear-With regard to the colonoscopy, if medically necessary may proceed at intermediate risk. Alternatively, if low risk for colon cancer, may also consider Cologuard. Decision per GI. Discussed colonoscopy and other alternatives to include Cologuard Code(s): Z12.11 - Encounter for screening for malignant neoplasm of colon Plan: Cologuard (2) Acid reflux: Comment: Acid reflux associates with alcohol-discussed abstaining from alcohol Code(s): K21.9 - Gastro-esophageal reflux disease without esophagitis Plan: Trial to omeprazole 20 mg Plan Cologuard Omeprazole 20 mg Abstain from alcohol Follow-up with PCP-may follow back with us for elevated liver enzymes Medications: New omeprazole 20 mg PO DAILY 30 caps 5RF Patient Instructions: cologuard omeprazole Abstain from etoh reflux precautions Follow-up with PCP for elevated liver enzymes per his choice however we are available for his return Appreciate the opportunity assist in the care this very pleasant Gent was present Coding Level of Care Code Est Pt Level 3 (60993) Diagnoses Screen for colon cancer Z12.11 Acid reflux K21.9 Time Spent (min) 30 Comment [id number]
== END 2022-12-15 13:58 | disposition home or self-care (01) ==
PROVIDERS: PCP Internal Medicine; Visit Provider Physician Assistant
DX: K21.9 Gastro-esophageal reflux disease without esophagitis (principal); K59.00 Constipation, unspecified
CPT/HCPCS: 99213

== ENCOUNTER → 2022-12-15 13:09 | Outpatient (BNVA) | payer OTHER, SELFPAY | PROVIDERS: PCP Internal Medicine; Visit Provider Physician Assistant | DX: Z12.11 Encounter for screening for malignant neoplasm of colon (principal); K21.9 Gastro-esophageal reflux disease without esophagitis | CPT/HCPCS: 99212 ==

== ENCOUNTER 2023-06-07 12:20 | Outpatient (REF) | payer OTHER, SELFPAY ==
[2023-06-07 14:12] LABS: Estimated Average Glucose 103 mg/dL; Hemoglobin A1c % 5.2 % (<6.0)
[2023-06-07 14:44] LABS: Prostate Specific Antigen Scr 7.66 ng/mL (<0.05-4.0)
[2023-06-07 14:48] LABS: Alanine Aminotransferase 80 U/L (0-40); Albumin Level 4.4 g/dL (3.5-5.0); Alkaline Phosphatase 133 U/L (39-117); Anion Gap 12 (12-20); Aspartate Amino Transferase 66 U/L (5-37); Bilirubin Total 0.5 mg/dL (0.0-1.0); Blood Urea Nitrogen 10 mg/dL (9-16); Calcium 9.6 mg/dL (8.4-10.2); Carbon Dioxide 27 mmol/L (22-29); Chloride 105 mmol/L (96-108); Estimated Glomerular Filt Rate > 60; Glucose Random 87 mg/dL (60-115); Potassium 3.5 mmol/L (3.3-5.1); Sodium 140 mmol/L (135-145); Total Protein 8.7 g/dL (6.5-8.0)
[2023-06-08 05:12] LABS: HBS Num1 0.01 mIU/mL (0-7.99); HBc Num1 0.23 S/CO (0.00-0.79); Hepatitis B Core Antibody Nonreactive (Nonreactive); Hepatitis B Surface Antigen Negative (Negative); ~HepC Num1 0.15 S/CO (0.00-0.79); ~Hepatitis B Surface Antibody NONREACTIVE (Nonreactive); ~Hepatitis C Antibody Nonreactive (Nonreactive)
[2023-06-10 18:13] LABS: HCV RNA PCR Qn <1.18 NOT DETECTED Log IU/mL (NOT DETECTED); HCV RNA PCR Qn <15 NOT DETECTED IU/mL (NOT DETECTED)
[2023-06-12 12:58] LABS: Anti Nuclear Antibody Screen NEGATIVE (NEGATIVE)
[2023-06-13 09:50] LABS: Smooth Muscle Antibody <20 U (<20)
== END 2023-06-07 12:21 | disposition home or self-care (01) ==
LOC: HO.LAB 12:20
PROVIDERS: PCP Internal Medicine; Visit Provider Internal Medicine
DX: Z12.5 Encounter for screening for malignant neoplasm of prostate (principal); E11.9 Type 2 diabetes mellitus without complications; E78.2 Mixed hyperlipidemia; I10 Essential (primary) hypertension; R74.01 Elevation of levels of liver transaminase levels; R80.8 Other proteinuria; R97.20 Elevated prostate specific antigen [PSA]
CPT/HCPCS: 36415; 80053; 83036; 84153; 86015; 86038; 86704; 86706; 86803; 87340; 87522

== ENCOUNTER 2023-10-11 11:12 | Outpatient (REF) | payer OTHER, SELFPAY ==
[2023-10-11 12:41] LABS: Estimated Average Glucose 117 mg/dL; Hemoglobin A1c % 5.7 % (<6.0)
[2023-10-11 13:06] LABS: Alanine Aminotransferase 24 U/L (0-40); Alkaline Phosphatase 99 U/L (39-117); Anion Gap 14 (12-20); Aspartate Amino Transferase 19 U/L (5-37); Bilirubin Total 0.4 mg/dL (0.0-1.0); Blood Urea Nitrogen 13 mg/dL (9-16); Calcium 9.7 mg/dL (8.4-10.2); Carbon Dioxide 26 mmol/L (22-29); Chloride 105 mmol/L (96-108); Cholesterol 87 mg/dL (<200); Estimated Glomerular Filt Rate > 60; Glucose Random 98 mg/dL (60-115); HDL Cholesterol 23 mg/dL (>40); LDL Cholesterol Calculated 46 mg/dL (<100); Potassium 3.6 mmol/L (3.3-5.1); Sodium 141 mmol/L (135-145); Total Protein 8.1 g/dL (6.5-8.0); Triglycerides 94 mg/dL (<150)
[2023-10-11 13:09] LABS: Prostate Specific Antigen Scr 7.91 ng/mL (<0.05-4.0)
[2023-10-11 13:22] LABS: Thyroid Stimulating Hormone 1.02 uIU/mL (0.32-4.0)
== END 2023-10-11 11:13 | disposition home or self-care (01) ==
LOC: HO.LAB 11:12
PROVIDERS: PCP Internal Medicine; Visit Provider Internal Medicine
DX: Z00.01 Encounter for general adult medical examination with abnormal findings (principal); E11.9 Type 2 diabetes mellitus without complications; G89.29 Other chronic pain; I10 Essential (primary) hypertension; I63.9 Cerebral infarction, unspecified; Z12.5 Encounter for screening for malignant neoplasm of prostate
CPT/HCPCS: 36415; 80053; 80061; 83036; 84153; 84443